=== PATIENT | female | born 1995 | race Caucasian/White ===

== ENCOUNTER 2016-07-20 10:25 | Outpatient (CLI) | payer MEDICAID | END 2016-07-20 13:40 | disposition home or self-care (01) | DX: O36.8130 Decreased fetal movements, third trimester, not applicable or unspecified (principal); Z3A.39 39 weeks gestation of pregnancy ==

== ENCOUNTER 2016-08-03 22:10 | Emergency (ER) | payer MEDICAID ==
[2016-08-03] MEDS ORDERED: AMOX/CLAV 875 MG/125 MG TABLET PO STA (23:47)
[2016-08-03] MEDS ORDERED: AMOX/CLAV 875 MG/125 MG TABLET PO ONE (23:51)
== END 2016-08-04 00:15 | disposition home or self-care (01) ==
DX: O86.0 Infection of obstetric surgical wound (principal)
CPT/HCPCS: 81001; 81025; 87077; 87086; 87181; 99283; A9270

== ENCOUNTER 2017-02-04 12:50 | Emergency (ER) | payer MEDICAID ==
--- NOTE | 2017-02-04 13:22 | ED Physician Documentation ---
PD HPI HEENT - Stated complaint Stated Complaint: FACIAL SWELLING - Chief complaint Chief Complaint: Heent - History obtained from History obtained from: Patient - History of Present Illness Timing - onset: Other (Increasing facial swelling on the right for the last few days with some tenderness around the infraorbital area and the right nares. She has had an exposed nerve on the tooth for the last 2 weeks but does not bothering her. No history of MRSA. No fevers. She is breast-feeding.) Review of Systems Constitutional: denies: Fever, Chills Eyes: denies: Loss of vision, Decreased vision, Photophobia Ears: denies: Loss of hearing, Ear pain Nose: denies: Rhinorrhea / runny nose, Congestion PD PAST MEDICAL HISTORY - Present Medications Home Medications: Ambulatory Orders Medication Instructions Recorded Confirmed Levetiracetam [Keppra] 1,500 mg PO BID 08/03/16 02/04/17 Calcium Carbonate/Vitamin D3 1 each PO DAILY 02/04/17 02/04/17 [Calcium 500-Vit D3 200 Tablet] Cephalexin [Keflex] 500 mg PO QID #40 capsule 02/04/17 - Allergies Allergies/Adverse Reactions: Allergies Allergy/AdvReac Type Severity Reaction Status Date / Time muscle relaxers AdvReac Rash Uncoded 02/04/17 12:55 - Social History Does the pt smoke?: No Smoking Status: Never smoker PD ED PE NORMAL - Vitals Vital signs reviewed: Yes - General General: Alert and oriented X 3, No acute distress - HEENT HEENT: Other (Pupils are equally round and reactive to light, extraocular movements are intact without pain. There is swelling from the infraorbital area down to the lip and out to the zygoma area, inside the right nares there are several crusted areas and at the anterior part of the right nares there is some tenderness but no obvious abscess to drain at this point. Teeth actually look pretty good.) - Neck Neck: Supple, no meningeal sign, No bony TTP - Neuro Neuro: Alert and oriented X 3, Normal speech - Psych Psych: Normal mood, Normal affect Results - Vitals Vitals: Vital Signs - 24 hr 02/04/17 12:53 Temperature 36.2 C L Heart Rate 94 Respiratory 18 Rate Blood Pressure 121/75 O2 Saturation 97 Oxygen O2 Source Room air - Labs Labs: Microbiology 02/04/17 13:21 MRSA (PCR) - Final Nasal PD MEDICAL DECISION MAKING - ED course ED course: 21-year-old woman with facial cellulitis from an intranasal source, no obvious abscess at this time. She is nontoxic without fevers and there is no evidence of orbital cellulitis. A MRSA PCR was sent. Since this was negative and she is breast-feeding she is treated with Keflex. Departure - Departure Disposition: 01 Home, Self Care Clinical Impression: Facial cellulitis Condition: Good Record reviewed to determine appropriate education?: Yes Instructions: ED Cellulitis Facial Prescriptions: Cephalexin [Keflex] 500 mg PO QID #40 capsule Comments: As discussed, return immediately if you worsen, develop significant pain, fever , or a specific pimple inside her nose that looks like it needs to be drained.
[2017-02-04] MEDS ORDERED: CEPHALEXIN 250 MG CAPSULE PO STA (15:56)
[2017-02-04] MEDS ORDERED: CEPHALEXIN 250 MG CAPSULE PO ONE (16:09)
[2017-02-04 16:11] VITALS: BP 113/72
== END 2017-02-04 16:15 | disposition home or self-care (01) ==
LOC: ED 12:50
DX: L03.211 Cellulitis of face (principal)
CPT/HCPCS: 87640; 99283; A9270

== ENCOUNTER 2017-02-21 03:50 | Inpatient (IN) | payer MEDICAID, OTHER ==
--- NOTE | 2017-02-21 04:14 | ED Physician Documentation ---
PD HPI ABD PAIN - Stated complaint Stated Complaint: NAUSEA,VOMITING - Chief complaint Chief Complaint: Abd Pain - History obtained from History obtained from: Patient - History of Present Illness Timing - onset: How many days ago (1-2) Timing - duration: Days Timing - details: Gradual onset Pain level max: 8 Pain level now: 6 Quality: Pain Location: RUQ Radiation: Other (no radiation) Improved by: Other (no ameliorating factors) Worsened by: Palpation Associated symptoms: Nausea, Vomiting. No: Fever, Diarrhea, Constipation Similar symptoms before: Has not had sx before Recently seen: Emergency Dept (T+R yesterday for N/V, had abnormal LFTs but no significant pain at that time. After d/c home, she rapidly developed RUQ pain which has progressed in intensity and is constant.) Review of Systems Constitutional: reports: Reviewed and negative Eyes: reports: Reviewed and negative Ears: reports: Reviewed and negative Nose: reports: Reviewed and negative Throat: reports: Reviewed and negative Cardiac: reports: Reviewed and negative Respiratory: reports: Reviewed and negative GI: reports: Abdominal Pain, Nausea, Vomiting. denies: Constipation, Diarrhea : denies: Dysuria, Frequency, Vaginal bleeding, Now EGA (urine HCG was negative on yesterday's ED workup) Skin: reports: Reviewed and negative Musculoskeletal: reports: Reviewed and negative Neurologic: reports: Reviewed and negative PD PAST MEDICAL HISTORY - Past Medical History Cardiovascular: None Respiratory: None Endocrine/Autoimmune: None - Present Medications Home Medications: Ambulatory Orders Medication Instructions Recorded Confirmed Levetiracetam [Keppra] 1,500 mg PO BID 08/03/16 02/20/17 Calcium Carbonate/Vitamin D3 1 each PO DAILY 02/04/17 02/20/17 [Calcium 500-Vit D3 200 Tablet] Promethazine [Phenergan] 12.5 mg PO Q6H PRN #10 tablet 02/20/17 - Allergies Allergies/Adverse Reactions: Allergies Allergy/AdvReac Type Severity Reaction Status Date / Time muscle relaxers AdvReac Rash Uncoded 02/21/17 04:00 - Social History Does the pt smoke?: No Smoking Status: Never smoker PD ED PE NORMAL - Vitals Vital signs reviewed: Yes - General General: Alert and oriented X 3, Well developed/nourished, Other (obvious painful distress) - HEENT HEENT: Moist mucous membranes - Neck Neck: Supple, no meningeal sign - Cardiac Cardiac: RRR, No murmur - Respiratory Respiratory: No respiratory distress, Clear bilaterally - Abdomen Abdomen: Soft, Non distended, Other (RUQ tenderness to palpation without rebound or guarding) - Back Back: No CVA TTP - Derm Derm: Normal color, Warm and dry - Extremities Extremities: No edema - Neuro Neuro: Alert and oriented X 3 Results - Vitals Vitals: Vital Signs - 24 hr 02/21/17 02/21/17 02/21/17 03:57 03:58 06:46 Temperature 36.1 C L 36.4 C L 36.4 C L Heart Rate 77 93 75 Respiratory 18 18 16 Rate Blood Pressure 139/87 H 119/87 H 115/60 O2 Saturation 100 97 98 Oxygen O2 Source Room air - Labs Labs: Laboratory Tests 02/21/17 02/21/17 02/21/17 04:20 04:20 04:20 WBC 9.8 RBC 4.77 Hgb 13.9 Hct 39.8 MCV 83.4 MCH 29.2 MCHC 35.1 RDW 12.0 Plt Count 240 MPV 8.3 Neut # 6.6 Lymph # 2.0 [place] # 0.8 Eos # 0.3 Baso # 0.0 Absolute Nucleated RBC 0.00 Nucleated RBC % 0.0 PT 12.2 INR 1.1 Sodium 138 Potassium 3.4 L Chloride 107 Carbon Dioxide 23 Anion Gap 8.0 BUN 6 Creatinine 0.5 Estimated GFR (MDRD) 154 Glucose 90 Calcium 8.8 Total Bilirubin 5.3 H AST 289 H ALT 672 H Alkaline Phosphatase 143 H Total Protein 7.8 Albumin 4.5 Globulin 3.3 Albumin/Globulin Ratio 1.4 Amylase 20 L Lipase 19 L PD MEDICAL DECISION MAKING - ED course Complexity details: reviewed old records, reviewed results, re-evaluated patient , considered differential, d/w patient ED course: LFTs have improved, but mild/minimal improvement, since yesterday's ED visit ( bilirubin, AST, ALT, and alk. phos.) She had pain control with IV dilaudid, although she noted pain was gradually returning. I discussed her case with Dr. Bailey (GI at [facility]); he recommends MRCP and INR. If INR>2, transfer would be indicated ("to [place]"). If MRCP is (+), transfer to [facility]. If MRCP is (-), can monitor and treat at [facility]. D/W Dr. Cho, accepts patient for [facility], will order MRCP. Patient denies alcohol use. Has not traveled outside of country (ever, let alone recently). She took one dose of tylenol last night, but this was the first dose of acetaminophen she recalls haven taken lately. Departure - Departure Disposition: ED Place in Observation Clinical Impression: Elevated liver enzymes Abdominal pain Qualifiers: Abdominal location: right upper quadrant Qualified Code(s): R10.11 - Right upper quadrant pain Condition: Stable
[2017-02-21] MEDS ORDERED: SODIUM CHLORIDE 0.9% 1,000 ML IV STA (04:48)
[2017-02-21] MEDS ORDERED: HYDROmorphone 0.5 MG/0.5 ML SYRINGE IVP STA (04:48)
[2017-02-21] MEDS ORDERED: ONDANSETRON 4 MG/2 ML VIAL IVP STA ×2 (04:49→07:59)
[2017-02-21 04:55] LABS: BASOPHILS % (AUTO) 0.5 %; EOSINOPHILS # (AUTO) 0.3 10^3/uL (0.0-0.7); HCT - HEMATOCRIT 39.8 % (37.0-47.0); HGB - HEMOGLOBIN 13.9 g/dL (12.0-16.0); LYMPHOCYTES % (AUTO) 20.8 %; MEAN CORPUSCULAR HEMOGLOBIN 29.2 pg (27.0-31.0); MEAN CORPUSCULAR HGB CONC 35.1 g/dL (32.0-36.0); MEAN CORPUSCULAR VOLUME 83.4 fL (81.0-99.0); MEAN PLATELET VOLUME 8.3 fL (7.9-10.8); MONOCYTES # (AUTO) 0.8 10^3/uL (0.0-1.0); MONOCYTES % (AUTO) 8.3 %; NEUTROPHILS # (AUTO) 6.6 10^3/uL (1.5-6.6); NEUTROPHILS % (AUTO) 67.4 %; RED BLOOD COUNT 4.77 10^6/uL (4.20-5.40); UNCORRECTED WHITE BLOOD COUNT 9.8 x10^3/uL; WHITE BLOOD COUNT 9.8 x10^3/uL (4.8-10.8)
[2017-02-21] MEDS ORDERED: HYDROmorphone 1 MG/ML SYRINGE ONE (05:03)
[2017-02-21] MEDS ORDERED: ONDANSETRON 4 MG/2 ML VIAL ONE ×2 (05:04→08:08)
[2017-02-21 05:09] LABS: ALBUMIN/GLOBULIN RATIO 1.4 (1.0-2.2); BILIRUBIN,TOTAL 5.3 mg/dL (0.2-1.0); CALCIUM 8.8 mg/dL (8.5-10.3); CREATININE 0.5 mg/dL (0.4-1.0); POTASSIUM 3.4 mmol/L (3.5-5.0); TOTAL PROTEIN 7.8 g/dL (6.7-8.2)
[2017-02-21 06:40] LABS: INR 1.1 (0.8-1.2); PT - PROTHROMBIN TIME 12.2 secs (9.9-12.6)
[2017-02-21] MEDS ORDERED: ACETAMINOPHEN 325 MG TABLET PO PRN (08:16)
[2017-02-21] MEDS ORDERED: HYDROmorphone 0.5 MG/0.5 ML SYRINGE IVP PRN (08:16)
[2017-02-21] MEDS ORDERED: PROMETHAZINE 25 MG/1 ML VIAL IM PRN (08:16)
[2017-02-21] MEDS: levETIRAcetam 250 MG TABLET PO SCH ×2 (09:42→21:58)
[2017-02-21] MEDS: SODIUM CHLORIDE 0.9% 1,000 ML IV SCH ×4 (09:54→23:44)
[2017-02-21] MEDS: ENOXAPARIN 40 MG/0.4 ML SYRINGE SUBQ SCH (10:20)
[2017-02-21] MEDS: POLYETHYLENE GLYCOL 3350 17 GM PACKET PO SCH (10:56)
[2017-02-21] MEDS: SODIUM CHLORIDE FLUSH 0.9% 10 ML SYRINGE IVP SCH ×2 (13:43→21:31)
[2017-02-21] MEDS: SODIUM CHLORIDE FLUSH 0.9% 10 ML SYRINGE IVP PRN (13:54)
[2017-02-21] MEDS: ONDANSETRON 4 MG/2 ML VIAL IVP PRN ×2 (13:54→23:16)
[2017-02-21 14:16] LABS: INR 1.1 (0.8-1.2); PT - PROTHROMBIN TIME 12.3 secs (9.9-12.6)
[2017-02-21 14:24] LABS: ALBUMIN/GLOBULIN RATIO 1.5 (1.0-2.2); BILIRUBIN,TOTAL 4.3 mg/dL (0.2-1.0); CALCIUM 8.4 mg/dL (8.5-10.3); CREATININE 0.4 mg/dL (0.4-1.0); POTASSIUM 3.5 mmol/L (3.5-5.0); TOTAL PROTEIN 6.1 g/dL (6.7-8.2)
[2017-02-21 14:35] LABS: BILIRUBIN,DIRECT 2.8 mg/dL (0.1-0.5); BILIRUBIN,INDIRECT 1.5 mg/dL; BILIRUBIN,TOTAL 4.3 mg/dL (0.2-1.0)
--- NOTE | 2017-02-21 15:48 | HISTORY & PHYSICAL EXAMINATION ---
Chief Complaint - Chief Complaint Chief Complaint: Abdominal pain History of Present Illness - Admitted From Admitted From:: Emergency department - History Obtained From Records Reviewed: Yes History obtained from: Patient Exam Limitations: None - History of Present Illness HPI Comment/Other: Patient is a 22-year-old female with a past medical history significant for scoliosis and epilepsy who presented to the emergency department with a chief complaint of abdominal pain. The patient states that her abdominal pain first started about 10 months ago while she was with her son. She states that at that time she began to notice a bandlike pain in the upper abdomen. She states that most of the pain was in the right upper quadrant but it moved around the entire upper part of the abdomen. She states that the pain was a cramping or nerve like pain that would last for anywhere from 12-15 hours and then resolved. She states the pain would be a 7-9 out of 10. She states the pain occurred about once a month for 6 months while she was . She states that after delivering she noticed that the pain would occur more frequently. She states that it occurred 2-3 times a month over the last 4 months. She states that she never saw a physician regarding the pain and has never been worked up. The patient states that 3 days ago the pain started up again but this time it was extreme and associated with nausea. She states that over 2 days her nausea became so severe she could not even drink water. She states that she had an episode of vomiting and finally decided to go to the emergency department. She also states that she noticed that her urine was really dark despite drinking lots of water. She initially came to the emergency room on 02/20/2017 at that time she was found to have abnormal LFTs and bilirubin. She had a bilirubin of 5.6, AST of 417, ALT of 776 and an alk phos of 146. She underwent a workup with an abdominal ultrasound which showed a gallbladder with no stones or wall thickening. She also had a common bile duct that was 0.5 cm at the aurora hepatis. And there was some possible mild intrahepatic bile duct dilation. The patients symptoms resolved completely with some antiemetics and IV fluids and she felt well enough that she was able to be discharged home from the emergency department. The patient states that after returning home she began having worsening abdominal pain mostly in the right upper quadrant region and had to return back to the emergency room early this morning. The patient denies any fevers or chills. She also denies any recent travel. She does admit to taking Tylenol yesterday but only a small dose. She denies any illicit drug use and any alcohol use. The patient denies any headaches, blurred vision, runny nose, sore throat, nasal congestion, difficulty swallowing , neck pain, chest pain, shortness of air, orthopnea, PND, increased lower extremity swelling, diarrhea, constipation, urinary urgency, urinary frequency, dysuria, joint pain, muscle aches, joint swelling, rash, back pain, neck stiffness, recent unintentional weight loss or any focal neurologic deficits. On presentation to the emergency department today the patient was afebrile and had normal vital signs. The patient was in a significant amount of pain and did require IV pain medication. She also was quite nauseated and did receive several doses of antiemetic. The patient's lab work did reveal that she still had an elevated bilirubin, AST, ALT and alk phos although these were slightly lower than yesterday. The patient's INR was normal. The patient's CBC was also normal. The emergency room physician spoke with night clerk auditor at [facility] who was on-call and the night clerk auditor recommended that the patient undergo an MRCP for further evaluation. If the MRCP was positive then the patient would need to be transferred to [facility] for an ERCP. If the MRCP was negative then this is most likely a viral hepatitis and supportive care was recommended. The patient was placed in observation and MRCP was ordered. History - Past Medical History Cardiovascular: reports: None Respiratory: reports: None Neuro: reports: Seizure disorder Endocrine/Autoimmune: reports: None Musculoskeletal: reports: Scoliosis - Past Surgical History Ortho: reports: Other (Repair of scoliosis) - Family & Social History Family History: Mother: Alive and Well (Mother has fatty liver, sister gallstones), Father: Alive and Well, Diabetes, Type 2 (grandfather), Sister: Alive and Well, Other family: Cancer (Grandfather had cancer) Living arrangement: At home Living Situation: With spouse/s.o., With family Social History Notes: Patient is originally from [place]. She lives with her and son in [place]. The patient's is originally from [place] and is currently in the [employer]. She lives with her and son. Patient has just one child. 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 She does not smoke, does not drink alcohol and denies any illicit drug use. - POLST Patient has POLST: No POLST Status: Full Code Meds/Allgy - Home Medications Home Medications: Ambulatory Orders Medication Instructions Recorded Confirmed Levetiracetam [Keppra] 1,500 mg PO BID 08/03/16 02/21/17 Calcium Carbonate/Vitamin D3 1 each PO DAILY 02/04/17 02/21/17 [Calcium 500-Vit D3 200 Tablet] Promethazine [Phenergan] 12.5 mg PO Q6H PRN #10 tablet 02/20/17 - Allergies Allergies/Adverse Reactions: Allergies Allergy/AdvReac Type Severity Reaction Status Date / Time muscle relaxers AdvReac Rash Uncoded 02/21/17 04:00 Review of Systems - Other Findings Other Findings: A comprehensive review of systems was performed the pertinent positives and negatives are stated above in the HPI and the remainder of the review of systems is negative. Exam - Vital Signs Reviewed Vital Signs: Yes Vital Signs: Vital Signs x48h Temp Pulse Pulse Resp BP BP Pulse Ox 02/21/17 10:15 36.8 C 66 16 114/53 L 99 02/21/17 08:21 36.4 C L 75 15 121/71 98 - Physical Exam General Appearance: positive: No acute distress, Alert, Other (jaundiced, appears weak) Eyes Bilateral: positive: Normal inspection, PERRL, EOMI, No lid inflammation, Conjunctivae nml, Other (scleral icterus) ENT: positive: ENT inspection nml, Pharynx nml, Dry mucous membranes. negative : Purulent nasal drainage, Pharyngeal erythema, Oral lesions Neck: positive: Nml inspection, Thyroid nml, No JVD, Trachea midline. negative : Thyromegaly, Lymphadenopathy (R), Lymphadenopathy (L), Stiff neck, Carotid bruit, Tracheal deviation Respiratory: positive: Chest non-tender, No respiratory distress, Breath sounds nml. negative: Wheezes, Rales, Rhonchi Cardiovascular: positive: Regular rate & rhythm, No murmur, No gallop Peripheral Pulses: positive: 2+ Abdomen: positive: No organomegaly, Nml bowel sounds, Tenderness (Mostly in the RUQ but all over including left and right lower quadrants), Other (No peritoneal signs, negative murphys sign). negative: Guarding, Rebound, Hepatomegaly Back: positive: Nml inspection. negative: CVA tenderness (R), CVA tenderness (L ) Skin: positive: No rash, Warm, Other (Jaundiced). negative: Cyanosis, Pallor Extremities: positive: Non-tender, Full ROM, Nml appearance, No pedal edema Neurologic/Psychiatric: positive: Oriented x3, CN's nml (2-12), Motor nml, Sensation nml, Mood/affect nml Conclusion/Plan - Problem List (1) Abdominal pain Conclusion/Plan: Patient presents with severe abdominal pain, nausea and vomiting. Patient has elevated LFTs and bilirubin on presentation. The patient's abdominal ultrasound was negative for gallstones or cholecystitis. Patient is afebrile and has no leukocytosis. Patient has been having off-and-on symptoms of abdominal pain for the past 10 months. Symptoms became significantly worse and persistent the last 3-4 days. Gastroenterology at [facility] was contacted and recommended MRCP for further evaluation. Given the significant elevation in the patient's bilirubin it is suspected that the patient may have a common bile duct stone or may have passed a common bile duct stone as LFTs and bilirubin are slowly improving. The patient may also have a portal vein thrombosis although this is unlikely given the chronicity of the patient's symptoms. Patient could also have a viral hepatitis. Plan: Order MRCP Supportive care with IV fluids, antiemetics and IV pain medication. Monitor LFTs, bilirubin and INR every 8 hours Transfer to higher level of care if need for ERCP Qualifiers: Abdominal location: right upper quadrant Qualified Code(s): R10.11 - Right upper quadrant pain (2) Elevated liver enzymes Conclusion/Plan: Patient presented with elevated liver enzymes with ALT greater than AST and elevated bilirubin. Patient has abdominal pain, nausea and vomiting. Ultrasound of the abdomen did not show any gallstones or cholecystitis. Patient 's liver enzymes have only mildly improved since yesterday. Patient's abdominal pain has worsened. Because of the patient's elevated LFTs is uncertain at this time. Patient needs further workup as differential is still wide including choledocholithiasis , hepatic vein thrombosis, viral hepatitis, cholangitis, primary biliary cirrhosis, primary sclerosing cholangitis. Plan: Hepatitis surveyor rod helper LFTs, bili and inr MRCP Supportive care (3) Epilepsy Conclusion/Plan: Patient has history of epilepsy and is on Keppra at home. It is very unlikely that Keppra is causing her elevated LFTs and bilirubin. Continue home dose of Keppra. Stable (4) Prophylactic use of low molecular weight heparin for venous thromboembolism Conclusion/Plan: Placed on Lovenox for DVT prophylaxis while hospitalized. - Lab Results Lab results reviewed: Yes Fish Bones: 02/21/17 04:20 02/21/17 13:58 Other Lab Results: Laboratory Results WBC 9.8 x10^3/uL (4.8-10.8) 02/21/17 04:20 RBC 4.77 10^6/uL (4.20-5.40) 02/21/17 04:20 Hgb 13.9 g/dL (12.0-16.0) 02/21/17 04:20 Hct 39.8 % (37.0-47.0) 02/21/17 04:20 MCV 83.4 fL (81.0-99.0) 02/21/17 04:20 MCH 29.2 pg (27.0-31.0) 02/21/17 04:20 MCHC 35.1 g/dL (32.0-36.0) 02/21/17 04:20 RDW 12.0 % (12.0-15.0) 02/21/17 04:20 Plt Count 240 10^3/uL (130-450) 02/21/17 04:20 MPV 8.3 fL (7.9-10.8) 02/21/17 04:20 Neut # 6.6 10^3/uL (1.5-6.6) 02/21/17 04:20 Lymph # 2.0 10^3/uL (1.5-3.5) 02/21/17 04:20 [place] # 0.8 10^3/uL (0.0-1.0) 02/21/17 04:20 Eos # 0.3 10^3/uL (0.0-0.7) 02/21/17 04:20 Baso # 0.0 10^3/uL (0.0-0.1) 02/21/17 04:20 Absolute Nucleated RBC 0.00 x10^3/uL 02/21/17 04:20 Nucleated RBC % 0.0 /100WBC 02/21/17 04:20 PT 12.3 secs (9.9-12.6) 02/21/17 13:58 INR 1.1 (0.8-1.2) 02/21/17 13:58 Sodium 140 mmol/L (135-145) 02/21/17 13:58 Potassium 3.5 mmol/L (3.5-5.0) 02/21/17 13:58 Chloride 107 mmol/L (101-111) 02/21/17 13:58 Carbon Dioxide 24 mmol/L (21-32) 02/21/17 13:58 Anion Gap 9.0 (6-13) 02/21/17 13:58 BUN 5 mg/dL (6-20) L 02/21/17 13:58 Creatinine 0.4 mg/dL (0.4-1.0) 02/21/17 13:58 Estimated GFR (MDRD) 200 (>89) 02/21/17 13:58 Glucose 88 mg/dL (70-100) 02/21/17 13:58 Calcium 8.4 mg/dL (8.5-10.3) L 02/21/17 13:58 Total Bilirubin 4.3 mg/dL (0.2-1.0) H 02/21/17 13:58 Direct Bilirubin 2.8 mg/dL (0.1-0.5) H 02/21/17 13:58 Indirect Bilirubin 1.5 mg/dL 02/21/17 13:58 AST 187 IU/L (10-42) H 02/21/17 13:58 ALT 489 IU/L (10-60) H 02/21/17 13:58 Alkaline Phosphatase 121 IU/L (42-121) 02/21/17 13:58 Total Protein 6.1 g/dL (6.7-8.2) L 02/21/17 13:58 Albumin 3.7 g/dL (3.2-5.5) 02/21/17 13:58 Globulin 2.4 g/dL (2.1-4.2) 02/21/17 13:58 Albumin/Globulin Ratio 1.5 (1.0-2.2) 02/21/17 13:58 Amylase 20 U/L (28-100) L 02/21/17 04:20 Lipase 19 U/L (22-51) L 02/21/17 04:20 - Diagnostic Imaging Results Diagnostic Imaging Results: positive: Final report reviewed Diagnostic Imaging Results Comments: Ultrasound abdomen Impression 1. The gallbladder demonstrates no stones or wall thickening. 2. The common bile duct measures 0.5 cm at the aurora hepatis. 3. Possible mild intrahepatic bile duct dilatation. Issues/Core Measures - Anticipated LOS Anticipated Stay Length: Less than 2 midnights - DVT/VTE - Prophylaxis VTE/DVT Prophylaxis med ordered at admit?: Yes
--- NOTE | 2017-02-21 18:19 | MRI Report ---
EXAM: MR ABDOMEN WITHOUT CONTRAST (MR CHOLANGIOPANCREATOGRAPHY) EXAM DATE: 02/21/2017 05:23 PM. CLINICAL HISTORY: Elevated liver enzymes and bilirubin. Abdominal pain with nausea and vomiting. COMPARISON: None. TECHNIQUE: Multiplanar breath-hold T1 and T2 sequences obtained through the abdomen on an MR scanner. Dedicated 2D and 3D MRCP sequences obtained through the biliary and pancreatic ducts. No intravenous contrast given. FINDINGS: Lung Bases: The lung bases are clear. Liver: The liver is normal in contour without focal intrahepatic lesion. CBD: The extrahepatic ducts appear normal. The CBD is 4 mm in diameter. Gallbladder: Mildly contracted with gallbladder wall thickening with some layering T1 and T2 hypointe nse material within the gallbladder (401, 10; 501, 10). Trace pericholecystic fluid. Pancreas: The pancreas appears normal with no mass. The pancreatic duct measures 1 mm in diameter and appears normal with no stone or stricture. Spleen: The spleen appears normal. Kidneys and Adrenals: The kidneys appear normal with no mass or hydronephrosis. There are no cysts in the kidneys. The adrenals appear normal. Bowel: The small bowel and colon appear normal with no inflammation or obstruction. Retroperitoneum: The retroperitoneal structures appear normal with no mass or lymphadenopathy. IMPRESSION: 1. Contracted gallbladder with gallbladder wall thickening and some filling defects near the fundus o f the gallbladder. This could represent some tumefactive sludge or noncalcified stones. Trace pericho lecystic fluid. Different diagnosis for the gallbladder wall thickening when include cholecystitis, h ypoproteinemia or underlying liver disease. [facility] Referring Provider Line: [phone] SITE ID: [id number]
[2017-02-21 22:23] LABS: INR 1.1 (0.8-1.2); PT - PROTHROMBIN TIME 12.6 secs (9.9-12.6)
[2017-02-21 22:37] LABS: ALBUMIN/GLOBULIN RATIO 1.3 (1.0-2.2); BILIRUBIN,TOTAL 3.9 mg/dL (0.2-1.0); BUN - BLOOD UREA NITROGEN < 5 mg/dL (6-20); CALCIUM 8.2 mg/dL (8.5-10.3); CARBON DIOXIDE - CO2 23 mmol/L (21-32); CHLORIDE 107 mmol/L (101-111); CREATININE 0.5 mg/dL (0.4-1.0); GFR - MDRD 154 (>89); GLUCOSE 93 mg/dL (70-100); POTASSIUM 3.1 mmol/L (3.5-5.0); SODIUM 140 mmol/L (135-145)
[2017-02-22] MEDS: ONDANSETRON 4 MG/2 ML VIAL IVP PRN ×3 (05:10→21:23)
[2017-02-22] MEDS: SODIUM CHLORIDE FLUSH 0.9% 10 ML SYRINGE IVP SCH ×3 (05:10→19:40)
[2017-02-22] MEDS: SODIUM CHLORIDE 0.9% 1,000 ML IV SCH ×2 (05:10→19:36)
[2017-02-22 06:17] LABS: BASOPHILS % (AUTO) 0.7 %; EOSINOPHILS # (AUTO) 0.3 10^3/uL (0.0-0.7); EOSINOPHILS % (AUTO) 4.8 %; HCT - HEMATOCRIT 35.3 % (37.0-47.0); HGB - HEMOGLOBIN 12.3 g/dL (12.0-16.0); LYMPHOCYTES # (AUTO) 1.8 10^3/uL (1.5-3.5); LYMPHOCYTES % (AUTO) 32.8 %; MEAN CORPUSCULAR HGB CONC 34.9 g/dL (32.0-36.0); MEAN CORPUSCULAR VOLUME 85.7 fL (81.0-99.0); MEAN PLATELET VOLUME 8.5 fL (7.9-10.8); MONOCYTES # (AUTO) 0.4 10^3/uL (0.0-1.0); MONOCYTES % (AUTO) 7.8 %; NEUTROPHILS % (AUTO) 53.9 %; RED BLOOD COUNT 4.11 10^6/uL (4.20-5.40); RED CELL DISTRIBUTION WIDTH 12.4 % (12.0-15.0); UNCORRECTED WHITE BLOOD COUNT 5.6 x10^3/uL; WHITE BLOOD COUNT 5.6 x10^3/uL (4.8-10.8)
[2017-02-22 06:22] LABS: INR 1.1 (0.8-1.2); PT - PROTHROMBIN TIME 12.2 secs (9.9-12.6)
[2017-02-22 06:30] LABS: ALBUMIN/GLOBULIN RATIO 1.5 (1.0-2.2); BILIRUBIN,TOTAL 3.5 mg/dL (0.2-1.0); BUN - BLOOD UREA NITROGEN < 5 mg/dL (6-20); CALCIUM 8.4 mg/dL (8.5-10.3); CARBON DIOXIDE - CO2 22 mmol/L (21-32); CHLORIDE 107 mmol/L (101-111); CREATININE 0.4 mg/dL (0.4-1.0); GFR - MDRD 200 (>89); GLUCOSE 92 mg/dL (70-100); POTASSIUM 3.3 mmol/L (3.5-5.0); SODIUM 138 mmol/L (135-145); TOTAL PROTEIN 5.9 g/dL (6.7-8.2)
[2017-02-22] MEDS: PANTOPRAZOLE 40 MG TABLET PO SCH (06:44)
[2017-02-22] MEDS: ENOXAPARIN 40 MG/0.4 ML SYRINGE SUBQ SCH (09:04)
[2017-02-22] MEDS: PIPERACILLIN/TAZOBACTAM 3.375 GM in SODIUM CHLORIDE 0.9% MINIBAG 100 ML IV SCH ×3 (09:06→21:21)
[2017-02-22] MEDS: levETIRAcetam 250 MG TABLET PO SCH ×2 (09:58→21:21)
--- NOTE | 2017-02-22 10:18 | PROVIDER PROGRESS NOTE ---
Assessment/Plan - Problem List (1) Cholecystitis Assessment/Plan: Patient presents with severe abdominal pain, nausea and vomiting. Patient has elevated LFTs and bilirubin on presentation. The patient's abdominal ultrasound was negative for gallstones or cholecystitis. Patient is afebrile and has no leukocytosis. Patient has been having off-and-on symptoms of abdominal pain for the past 10 months. Symptoms became significantly worse and persistent the last 3-4 days. Gastroenterology at [facility] was contacted and recommended MRCP for further evaluation. MRCP shows contracted gallbladder with gallbladder wall thickening and some filling defect near the fundus of the gallbladder. This could represent some tumefactive sludge or noncalcified stones. There is trace pericholecystic fluid. The differential diagnosis for gallbladder wall thickening includes cholecystitis, hypoproteinemia or underlying liver disease. These findings were discussed with gastroenterology at [facility] and they recommended a cholecystectomy and treatment for cholecystitis. Surgery was consulted and Dr. Dyer asked for patient to be made n.p.o. after midnight and will operate in the morning with laparoscopic cholecystectomy. Plan: N.p.o. after midnight Laparoscopic cholecystectomy in the morning Surgery consulted IV Zosyn for treatment of cholecystitis IV fluids Antiemetics Pain control Qualifiers: Abdominal location: right upper quadrant Qualified Code(s): R10.11 - Right upper quadrant pain (2) Elevated liver enzymes Conclusion/Plan: Patient presented with elevated liver enzymes with ALT greater than AST and elevated bilirubin. Patient has abdominal pain, nausea and vomiting. Ultrasound of the abdomen did not show any gallstones or cholecystitis. Patient 's liver enzymes have only mildly improved since yesterday. Patient's abdominal pain has worsened. Improving likely secondary to cholecystitis and possible transient CBD obstruction. MRCP does not show any CBD stones or CBD dilation. Plan: Continue to monitor LFTs Improving Surgery consult for cholecystectomy. (3) Epilepsy Conclusion/Plan: Patient has history of epilepsy and is on Keppra at home. It is very unlikely that Keppra is causing her elevated LFTs and bilirubin. Continue home dose of Keppra. Stable (4) Prophylactic use of low molecular weight heparin for venous thromboembolism Conclusion/Plan: Placed on Lovenox for DVT prophylaxis while hospitalized. - Current Meds Current Meds: Current Medications Generic Name Dose Route Start Last Admin Trade Name Freq PRN Reason Stop Dose Admin Enoxaparin Sodium 40 mg 02/21/17 09:00 02/22/17 09:04 Lovenox SUBQ 40 mg DAILY KAMERON Administration Sodium Chloride 1,000 mls @ 150 mls/hr 02/21/17 09:00 02/22/17 05:10 Normal Saline 0.9% IV 150 mls/hr .Q6H40M KAMERON Administration Piperacillin Sod/Tazobactam 100 mls @ 200 mls/hr 02/22/17 09:00 02/22/17 09: 06 Sod 3.375 gm/ Sodium Chloride IV 200 mls/hr Q6H KAMERON Administration Levetiracetam 1,500 mg 02/21/17 09:00 02/21/17 21:58 Keppra PO 1,500 mg BID KAMERON Administration Ondansetron HCl 4 mg 02/21/17 08:16 02/22/17 05:10 Zofran Inj IVP 4 mg Q6HR PRN Administration Nausea / Vomiting Pantoprazole Sodium 40 mg 02/22/17 07:00 02/22/17 06:44 Protonix PO 40 mg QDAC KAMERON Administration Polyethylene Glycol 17 gm 02/21/17 09:00 02/21/17 10:56 Miralax PO Not Given DAILY KAMERON Sodium Chloride 10 ml 02/21/17 08:16 02/21/17 13:54 Normal Saline Flush 0.9% IVP 10 ml PRN PRN Administration NEEDED PER PROVIDER ORDERS Sodium Chloride 10 ml 02/21/17 14:00 02/22/17 05:10 Normal Saline Flush 0.9% IVP Not Given Q8HR KAMERON - Lab Result Lab results reviewed: Yes Fish Bone Diagrams: 02/22/17 05:29 02/22/17 05:29 - Diagnostic Imaging Results Diagnostic Imaging Results: Final report reviewed Diagnostic Imaging Results Comments: MRCP: Impression: 1. Contracted gallbladder with gallbladder wall thickening and some filling defect near the fundus of the gallbladder. This could represent some tumefactive sludge or noncalcified stones. Trace pericholecystic fluid. Differential diagnosis for the gallbladder wall thickening when include cholecystitis, hypoproteinemia or underlying liver disease. - Additional Planning Condition/Complexity: Guarded My Orders: My Active Orders 02/22/17 General Surgery Consult [CONS] Routine 02/22/17 08:46 Admit [Admit \ Transfer \ Status] [RC] .ONCE 02/22/17 09:00 Piperacillin/Tazobactam [Zosyn] 3.375 gm Sodium Chloride 0.9% Minibag [Normal Saline 0.9% Minibag] 100 ml IV Q6H 02/22/17 12:00 Flu Vaccine Qs 5227-8665 [Fluarix Quad 4528-1725] 60 mcg IM .ONCE ONE 02/22/17 Breakfast DIET [Regular Diet] [DIET] 02/23/17 00:01 NPO except Meds at Midnight [DIET] Consult/Specialty: Surgery Plan Discussed with:: Patient Time Spent: 31-60 minutes Subjective - Subjective Patient Reports: Feeling Better, Resting Comfortably, Abdominal Pain (Pain is controlled but patient states it still comes on when pain medicaiton wears off.) , Nausea (Patient continues to have nausea but better controlled. She was able to eat her breakfast this morning.) Nursing Reports: No Complaints Objective Vital Signs: Vital Signs - 24 hr 02/21/17 02/21/17 02/21/17 15:59 20:33 23:41 Temperature 36.7 C 36.8 C 36.6 C Heart Rate [ 74 71 65 Brachial] Respiratory 18 17 18 Rate Blood Pressure 104/53 L 112/65 120/66 [Left Brachial artery] O2 Saturation 98 99 98 02/22/17 02/22/17 05:21 09:12 Temperature 36.6 C 36.8 C Heart Rate [ 75 72 Brachial] Respiratory 16 Rate Blood Pressure 106/75 122/68 [Left Brachial artery] O2 Saturation 98 98 Oxygen O2 Source Room air I&O (Last 24 Hrs): Intake and Output Totals x24h 02/20/17 02/21/17 02/22/17 23:59 23:59 22:59 Intake Total 2060.0 965 Output Total 650 Balance 1410.0 965 General: Alert, Oriented x3, Cooperative, No acute distress HEENT: Atraumatic, PERRLA, EOMI, Mucous membr. moist/pink Neck: Supple, No JVD, No thyromegaly, +2 carotid pulse wo bruit, No LAD Lymphatic: no adenopathy Neuro: Alert, Non Focal, CN 2-12 Grossly Intact, Oriented Times 3 Cardiovascular: Regular rate, Normal S1, Normal S2, No murmurs Respiratory: Chest non-tender, No respiratory distress, Breath sounds nml Abdomen: Soft, No hepatospenomegaly, Other (Tenderness mostly in the right upper quadrant but tender all over the abdomen) Extremities: No clubbing, No cyanosis, No edema, Normal pulses, No tenderness/ swelling Skin: No rashes, No breakdown - Results Results: Laboratory Results WBC 5.6 x10^3/uL (4.8-10.8) 02/22/17 05:29 RBC 4.11 10^6/uL (4.20-5.40) L 02/22/17 05:29 Hgb 12.3 g/dL (12.0-16.0) 02/22/17 05:29 Hct 35.3 % (37.0-47.0) L 02/22/17 05:29 MCV 85.7 fL (81.0-99.0) 02/22/17 05:29 MCH 30.0 pg (27.0-31.0) 02/22/17 05:29 MCHC 34.9 g/dL (32.0-36.0) 02/22/17 05:29 RDW 12.4 % (12.0-15.0) 02/22/17 05:29 Plt Count 187 10^3/uL (130-450) 02/22/17 05:29 MPV 8.5 fL (7.9-10.8) 02/22/17 05:29 Neut # 3.0 10^3/uL (1.5-6.6) 02/22/17 05:29 Lymph # 1.8 10^3/uL (1.5-3.5) 02/22/17 05:29 [place] # 0.4 10^3/uL (0.0-1.0) 02/22/17 05:29 Eos # 0.3 10^3/uL (0.0-0.7) 02/22/17 05:29 Baso # 0.0 10^3/uL (0.0-0.1) 02/22/17 05:29 Absolute Nucleated RBC 0.00 x10^3/uL 02/22/17 05:29 Nucleated RBC % 0.0 /100WBC 02/22/17 05:29 PT 12.2 secs (9.9-12.6) 02/22/17 05:29 INR 1.1 (0.8-1.2) 02/22/17 05:29 Sodium 138 mmol/L (135-145) 02/22/17 05:29 Potassium 3.3 mmol/L (3.5-5.0) L 02/22/17 05:29 Chloride 107 mmol/L (101-111) 02/22/17 05:29 Carbon Dioxide 22 mmol/L (21-32) 02/22/17 05:29 Anion Gap 9.0 (6-13) 02/22/17 05:29 BUN < 5 mg/dL (6-20) L 02/22/17 05:29 Creatinine 0.4 mg/dL (0.4-1.0) 02/22/17 05:29 Estimated GFR (MDRD) 200 (>89) 02/22/17 05:29 Glucose 92 mg/dL (70-100) 02/22/17 05:29 Calcium 8.4 mg/dL (8.5-10.3) L 02/22/17 05:29 Total Bilirubin 3.5 mg/dL (0.2-1.0) H 02/22/17 05:29 Direct Bilirubin 2.8 mg/dL (0.1-0.5) H 02/21/17 13:58 Indirect Bilirubin 1.5 mg/dL 02/21/17 13:58 AST 118 IU/L (10-42) H 02/22/17 05:29 ALT 379 IU/L (10-60) H 02/22/17 05:29 Alkaline Phosphatase 114 IU/L (42-121) 02/22/17 05:29 Total Protein 5.9 g/dL (6.7-8.2) L 02/22/17 05:29 Albumin 3.5 g/dL (3.2-5.5) 02/22/17 05:29 Globulin 2.4 g/dL (2.1-4.2) 02/22/17 05:29 Albumin/Globulin Ratio 1.5 (1.0-2.2) 02/22/17 05:29 Amylase 20 U/L (28-100) L 02/21/17 04:20 Lipase 19 U/L (22-51) L 02/21/17 04:20
[2017-02-22] MEDS: POLYETHYLENE GLYCOL 3350 17 GM PACKET PO SCH (10:27)
[2017-02-22] MEDS ORDERED: FLU VACCINE QS 2017-2018 60 MCG/0.5 ML SYRINGE IM ONE (12:00)
[2017-02-22] MEDS: SODIUM CHLORIDE FLUSH 0.9% 10 ML SYRINGE IVP PRN ×2 (13:23→21:22)
[2017-02-22] MEDS ORDERED: POTASSIUM CHLORIDE 20 MEQ TABLET PO SCH (17:01)
[2017-02-23] MEDS: SODIUM CHLORIDE 0.9% 1,000 ML IV SCH ×3 (02:35→15:31)
[2017-02-23] MEDS: PIPERACILLIN/TAZOBACTAM 3.375 GM in SODIUM CHLORIDE 0.9% MINIBAG 100 ML IV SCH ×3 (02:36→15:31)
[2017-02-23] MEDS: PANTOPRAZOLE 40 MG TABLET PO SCH (02:39)
[2017-02-23] MEDS: SODIUM CHLORIDE FLUSH 0.9% 10 ML SYRINGE IVP SCH ×3 (02:39→21:41)
[2017-02-23] MEDS: ONDANSETRON 4 MG/2 ML VIAL IVP PRN ×2 (03:54→19:26)
[2017-02-23 05:50] LABS: BASOPHILS % (AUTO) 0.5 %; EOSINOPHILS # (AUTO) 0.3 10^3/uL (0.0-0.7); EOSINOPHILS % (AUTO) 4.1 %; HCT - HEMATOCRIT 34.9 % (37.0-47.0); HGB - HEMOGLOBIN 12.2 g/dL (12.0-16.0); LYMPHOCYTES # (AUTO) 1.3 10^3/uL (1.5-3.5); LYMPHOCYTES % (AUTO) 17.5 %; MEAN CORPUSCULAR HEMOGLOBIN 29.7 pg (27.0-31.0); MEAN CORPUSCULAR HGB CONC 34.8 g/dL (32.0-36.0); MEAN CORPUSCULAR VOLUME 85.3 fL (81.0-99.0); MEAN PLATELET VOLUME 7.9 fL (7.9-10.8); MONOCYTES # (AUTO) 0.6 10^3/uL (0.0-1.0); MONOCYTES % (AUTO) 8.8 %; NEUTROPHILS % (AUTO) 69.1 %; NUCLEATED RED BLOOD CELLS AUTO 0.1 /100WBC; RED CELL DISTRIBUTION WIDTH 12.2 % (12.0-15.0); UNCORRECTED WHITE BLOOD COUNT 7.2 x10^3/uL; WHITE BLOOD COUNT 7.2 x10^3/uL (4.8-10.8)
[2017-02-23 05:53] LABS: PT - PROTHROMBIN TIME 11.7 secs (9.9-12.6)
[2017-02-23 06:13] LABS: ALBUMIN/GLOBULIN RATIO 1.3 (1.0-2.2); BILIRUBIN,TOTAL 1.8 mg/dL (0.2-1.0); BUN - BLOOD UREA NITROGEN < 5 mg/dL (6-20); CALCIUM 8.7 mg/dL (8.5-10.3); CARBON DIOXIDE - CO2 24 mmol/L (21-32); CHLORIDE 106 mmol/L (101-111); CREATININE 0.6 mg/dL (0.4-1.0); GFR - MDRD 125 (>89); GLUCOSE 92 mg/dL (70-100); MAGNESIUM 1.5 mg/dL (1.7-2.8); PHOSPHORUS 3.1 mg/dL (2.5-4.6); POTASSIUM 3.4 mmol/L (3.5-5.0); SODIUM 136 mmol/L (135-145)
[2017-02-23] MEDS: ENOXAPARIN 40 MG/0.4 ML SYRINGE SUBQ SCH (07:09)
[2017-02-23] MEDS ORDERED: POTASSIUM CHLORIDE 20 MEQ TABLET PO SCH (07:30)
[2017-02-23] MEDS ORDERED: MAGNESIUM SULFATE 2 GRAM 2 GM/50 ML BAG IV ONE (07:30)
[2017-02-23] MEDS: POLYETHYLENE GLYCOL 3350 17 GM PACKET PO SCH (08:26)
--- NOTE | 2017-02-23 09:20 | PROVIDER PROGRESS NOTE ---
Hospitalist Cross-cover Note - Cross-Cover Note Cross-Cover Note: Patient seen and examined this morning. Patient had a lot of nausea last night, abdominal pain is still bothering her but stable. Patient is NPO for surgery later this morning. Her potassium and magnesium are being replaced. Patients LFTs and Bilirubin are much better this morning. If surgery goes without any complications then patient might be able to be discharged this afternoon or evening.
[2017-02-23] MEDS: levETIRAcetam 250 MG TABLET PO SCH (09:48)
--- NOTE | 2017-02-23 10:08 | CONSULTATION NOTE ---
DATE OF CONSULTATION: 02/22/2017 00:00:00 REASON FOR CONSULTATION: Biliary colic, possible choledocholithiasis, possible acute cholecystitis. HISTORY OF PRESENT ILLNESS: This is a 22-year-old female who is 5 months who presented to the emergency department with a 3-day history of abdominal pain, nausea and vomiting. She states that during her she initially started developing abdominal pain and nausea, and since delivery she has had persistent symptoms approximately 1-2 times per month. She came to the emergency department yesterday because she was having progressive symptoms, which were not subsiding. Upon evaluation in the emergency department, her LFTs were noted to be markedly elevated. She subsequently underwent an ultrasound of the right upper quadrant, which demonstrated a normal-appearing gallbladder without CBD dilatation, without any evidence of CBD stones, and with mild intrahepatic duct dilatation. She was admitted to the medical service, placed on IV antibiotics and an MRCP performed the following day. Her MRCP has demonstrated a contractured gallbladder with gallbladder wall thickening and filling defects near the fundus of the gallbladder suggestive of gallstones. She has trace pericholecystic fluid. The common bile duct measures 4 mm, and there are no filling defects in the CBD. There is no noted or intra or extrahepatic biliary dilatation. The findings are consistent with acute cholecystitis. At this point, a surgical consultation was obtained. Upon my evaluation of the patient, she is resting in bed comfortably. She states that her symptoms are markedly improved since admission to the hospital. Currently, her bilirubin has almost normalized to 1.8. Upon admission, it was noted to be 5.3. Additionally, her LFTs are trending down. PAST MEDICAL HISTORY: Significant for epilepsy. PAST SURGICAL HISTORY: Spinal surgery for scoliosis. HOME MEDICATIONS: Keppra. ALLERGIES TO MEDICATIONS: MUSCLE RELAXANTS. PHYSICAL EXAMINATION VITAL SIGNS: Temperature is 36.6, blood pressure 126/67, heart rate is 66, respiratory rate is 17, O2 status 99% on room air. GENERAL: The patient is awake, alert, oriented x3, in no acute distress. She is overweight. CARDIOVASCULAR: Regular rate and rhythm. CHEST: Clear to auscultation bilaterally without rhonchi or wheezing. ABDOMEN: Soft and nondistended. There is mild tenderness to palpation in the right upper quadrant. No guarding and no rigidity. EXTREMITIES: Nonedematous. LABORATORY VALUES: Sodium 136, potassium 3.4, chloride 106, bicarbonate 24, BUN 5, creatinine 0.6, total bilirubin 1.8, AST 54, ALT 291, alkaline phosphatase 111. Amylase on admission 20 and lipase on admission 19. White blood cell count is 7.2, hemoglobin 12.2, hematocrit 34.9, platelets 167. ASSESSMENT: This is a 22-year-old female with acute cholecystitis and possible passage of a gallstone causing transient transaminitis. PLAN: The patient will be taken to the operating room for laparoscopic cholecystectomy and intraoperative cholangiogram. The procedure was explained to the patient in detail including the potential risks involved including, but not limited to bleeding, infection and damage to intra-abdominal organs. Specifically, including the common bile duct. Keep the patient n.p.o. on IV fluids and on IV antibiotics. The patient should be able to be discharged home after the procedure, depending on the intraoperative findings. I did explain to the patient that if a common bile duct stone is present, then she potentially could require an ERCP after operative intervention if I am unable to clear up the stone laparoscopically. JOB #: [id number] EXT JOB #:[id number]
[2017-02-23] MEDS ORDERED: BUPIVACAINE 0.25%-EPI 1:200000 PF 30 ML VIAL SUBQ ONE (14:00)
[2017-02-23] MEDS ORDERED: LACTATED RINGERS 1,000 ML IV ONE (15:32)
[2017-02-23] MEDS: HYDROmorphone 1 MG/ML SYRINGE ONE ×3 (15:40→16:00)
[2017-02-23] MEDS ORDERED: SODIUM CHLORIDE 0.9% 1,000 ML IV SCH (15:41)
--- NOTE | 2017-02-23 15:44 | OPERATIVE REPORT ---
Operative Report - General Admit Date: 02/22/17 Procedure Date: 02/23/17 Procedure Performed: Laparoscopic cholecystectomy with attempted IOC Post Op Diagnosis: acute cholecystitis - Procedure Note Primary Surgeon: Gomez Anesthesia Technique: General ET tube Pathology: gallbladder Complications: Unable to advance cholangiogram catheter in order to perform cholangiogram.Possible etiology is cystic duct or CBD stone, stricture or edema secondary to recent passage of stone - Other Other Information/Narrative: regular diet. repeat LFT's in am.
--- NOTE | 2017-02-23 16:54 | PROVIDER PROGRESS NOTE ---
Assessment/Plan - Problem List (1) Cholecystitis Assessment/Plan: Patient presents with severe abdominal pain, nausea and vomiting. Patient has elevated LFTs and bilirubin on presentation. The patient's abdominal ultrasound was negative for gallstones or cholecystitis. Patient is afebrile and has no leukocytosis. Patient has been having off-and-on symptoms of abdominal pain for the past 10 months. Symptoms became significantly worse and persistent the last 3-4 days. Gastroenterology at [facility] was contacted and recommended MRCP for further evaluation. MRCP shows contracted gallbladder with gallbladder wall thickening and some filling defect near the fundus of the gallbladder. This could represent some tumefactive sludge or noncalcified stones. There is trace pericholecystic fluid. The differential diagnosis for gallbladder wall thickening includes cholecystitis, hypoproteinemia or underlying liver disease. These findings were discussed with gastroenterology at [facility] and they recommended a cholecystectomy and treatment for cholecystitis. Surgery was consulted and Dr. Dyer asked for patient to be made n.p.o. after midnight and will operate in the morning with laparoscopic cholecystectomy. This afternoon patient underwent lap meeta with intraop cholangiogram, although lap meeta was successful Dr Dyer states she was unable to pass catheter through the biliary duct to do the cholangiogram, she would like to monitor patient for another night to ensure Bili continues to improve. If it does patient can be discharged tomorrow. Plan: Restart Diet Nausea and pain control IVFs Stop abx as patients gallbladder is now out Qualifiers: Abdominal location: right upper quadrant Qualified Code(s): R10.11 - Right upper quadrant pain (2) Elevated liver enzymes Conclusion/Plan: Patient presented with elevated liver enzymes with ALT greater than AST and elevated bilirubin. Patient has abdominal pain, nausea and vomiting. Ultrasound of the abdomen did not show any gallstones or cholecystitis. Patient 's liver enzymes have only mildly improved since yesterday. Patient's abdominal pain has worsened. Improving likely secondary to cholecystitis and possible transient CBD obstruction. MRCP does not show any CBD stones or CBD dilation. Cholecystectomy successfully done today but unable to pass catheter through the biliary duct for cholangiogram therefore patient needs to be monitored one more night to ensure bili is improving Plan: Continue to monitor LFTs and bili Improving Surgery following (3) Epilepsy Conclusion/Plan: Patient has history of epilepsy and is on Keppra at home. It is very unlikely that Keppra is causing her elevated LFTs and bilirubin. Continue home dose of Keppra. Stable (4) Prophylactic use of low molecular weight heparin for venous thromboembolism Conclusion/Plan: Placed on Lovenox for DVT prophylaxis while hospitalized. - Current Meds Current Meds: Current Medications Generic Name Dose Route Start Last Admin Trade Name Freq PRN Reason Stop Dose Admin Enoxaparin Sodium 40 mg 02/21/17 09:00 02/23/17 07:09 Lovenox SUBQ Not Given DAILY KAMERON Levetiracetam 1,500 mg 02/21/17 09:00 02/23/17 09:48 Keppra PO 1,500 mg BID KAMERON Administration Ondansetron HCl 4 mg 02/21/17 08:16 02/23/17 03:54 Zofran Inj IVP 4 mg Q6HR PRN Administration Nausea / Vomiting Pantoprazole Sodium 40 mg 02/22/17 07:00 02/23/17 02:39 Protonix PO Not Given QDAC KAMERON Polyethylene Glycol 17 gm 02/21/17 09:00 02/23/17 08:26 Miralax PO Not Given DAILY KAMERON Promethazine HCl 25 mg 02/21/17 08:16 02/23/17 04:12 Phenergan Inj IM 25 mg Q6HR PRN Administration Nausea / Vomiting Sodium Chloride 10 ml 02/21/17 08:16 02/22/17 21:22 Normal Saline Flush 0.9% IVP 10 ml PRN PRN Administration NEEDED PER PROVIDER ORDERS Sodium Chloride 10 ml 02/21/17 14:00 02/23/17 13:55 Normal Saline Flush 0.9% IVP Not Given Q8HR KAMERON - Lab Result Lab results reviewed: Yes Fish Bone Diagrams: 02/23/17 05:37 02/23/17 05:37 - Diagnostic Imaging Results Diagnostic Imaging Results: Final report reviewed - Additional Planning Condition/Complexity: Stable Consult/Specialty: Surgery Plan Discussed with:: Patient, Family Time Spent: 31-60 minutes Subjective - Subjective Patient Reports: Resting Comfortably, Abdominal Pain (Was stable this morning. She does have pain after surgery.), Nausea (Patient nauseated this morning but feels better after surgery. She still has some pain.) Nursing Reports: No Complaints Objective Vital Signs: Vital Signs - 24 hr 1102/23/17 02/23/17 00:23 09:49 15:37 Temperature 36.6 C 36.6 C Heart Rate [ 66 84 Brachial] Respiratory 17 16 Rate Blood Pressure 126/67 114/74 [Left Brachial artery] O2 Saturation 99 98 100 02/23/17 02/23/17 02/23/17 15:46 15:51 15:56 Temperature Heart Rate [ Brachial] Respiratory Rate Blood Pressure [Left Brachial artery] O2 Saturation 97 100 100 02/23/17 02/23/17 02/23/17 16:00 16:05 16:10 Temperature Heart Rate [ Brachial] Respiratory Rate Blood Pressure [Left Brachial artery] O2 Saturation 100 100 100 02/23/17 02/23/17 16:15 16:30 Temperature Heart Rate [ Brachial] Respiratory Rate Blood Pressure [Left Brachial artery] O2 Saturation 100 100 Oxygen O2 Source Room air I&O (Last 24 Hrs): Intake and Output Totals x24h 02/22/17 02/22/17 02/23/17 00:59 23:59 23:59 Intake Total 2250.0 Balance 2250.0 General: Alert, Oriented x3, Cooperative, No acute distress HEENT: Atraumatic, PERRLA, EOMI, Mucous membr. moist/pink Neck: Supple, No JVD, No thyromegaly, +2 carotid pulse wo bruit, No LAD Lymphatic: no adenopathy Neuro: Alert, Non Focal, CN 2-12 Grossly Intact, Oriented Times 3 Cardiovascular: Regular rate, Normal S1, Normal S2, No murmurs Respiratory: Chest non-tender, No respiratory distress, Breath sounds nml Abdomen: Normal bowel sounds, Soft, Other (Mild tenderness near surgical site) Extremities: No clubbing, No cyanosis, No edema, Normal pulses Skin: No rashes, No breakdown - Results Results: Laboratory Results WBC 7.2 x10^3/uL (4.8-10.8) 02/23/17 05:37 RBC 4.10 10^6/uL (4.20-5.40) L 02/23/17 05:37 Hgb 12.2 g/dL (12.0-16.0) 02/23/17 05:37 Hct 34.9 % (37.0-47.0) L 02/23/17 05:37 MCV 85.3 fL (81.0-99.0) 02/23/17 05:37 MCH 29.7 pg (27.0-31.0) 02/23/17 05:37 MCHC 34.8 g/dL (32.0-36.0) 02/23/17 05:37 RDW 12.2 % (12.0-15.0) 02/23/17 05:37 Plt Count 167 10^3/uL (130-450) 02/23/17 05:37 MPV 7.9 fL (7.9-10.8) 02/23/17 05:37 Neut # 5.0 10^3/uL (1.5-6.6) 02/23/17 05:37 Lymph # 1.3 10^3/uL (1.5-3.5) L 02/23/17 05:37 [place] # 0.6 10^3/uL (0.0-1.0) 02/23/17 05:37 Eos # 0.3 10^3/uL (0.0-0.7) 02/23/17 05:37 Baso # 0.0 10^3/uL (0.0-0.1) 02/23/17 05:37 Absolute Nucleated RBC 0.00 x10^3/uL 02/23/17 05:37 Nucleated RBC % 0.1 /100WBC 02/23/17 05:37 PT 11.7 secs (9.9-12.6) 02/23/17 05:37 INR 1.0 (0.8-1.2) 02/23/17 05:37 Sodium 136 mmol/L (135-145) 02/23/17 05:37 Potassium 3.4 mmol/L (3.5-5.0) L 02/23/17 05:37 Chloride 106 mmol/L (101-111) 02/23/17 05:37 Carbon Dioxide 24 mmol/L (21-32) 02/23/17 05:37 Anion Gap 6.0 (6-13) 02/23/17 05:37 BUN < 5 mg/dL (6-20) L 02/23/17 05:37 Creatinine 0.6 mg/dL (0.4-1.0) 02/23/17 05:37 Estimated GFR (MDRD) 125 (>89) 02/23/17 05:37 Glucose 92 mg/dL (70-100) 02/23/17 05:37 Calcium 8.7 mg/dL (8.5-10.3) 02/23/17 05:37 Ionized Calcium NO 02/23/17 05:37 Phosphorus 3.1 mg/dL (2.5-4.6) 02/23/17 05:37 Magnesium 1.5 mg/dL (1.7-2.8) L 02/23/17 05:37 Total Bilirubin 1.8 mg/dL (0.2-1.0) H 02/23/17 05:37 Direct Bilirubin 2.8 mg/dL (0.1-0.5) H 02/21/17 13:58 Indirect Bilirubin 1.5 mg/dL 02/21/17 13:58 AST 54 IU/L (10-42) H 02/23/17 05:37 ALT 291 IU/L (10-60) H 02/23/17 05:37 Alkaline Phosphatase 111 IU/L (42-121) 02/23/17 05:37 Total Protein 6.0 g/dL (6.7-8.2) L 02/23/17 05:37 Albumin 3.4 g/dL (3.2-5.5) 02/23/17 05:37 Globulin 2.6 g/dL (2.1-4.2) 02/23/17 05:37 Albumin/Globulin Ratio 1.3 (1.0-2.2) 02/23/17 05:37 Amylase 20 U/L (28-100) L 02/21/17 04:20 Lipase 19 U/L (22-51) L 02/21/17 04:20
[2017-02-23] MEDS ORDERED: SODIUM CHLORIDE 0.9% 50 ML IV ONE (17:28)
[2017-02-23] MEDS: PROMETHAZINE INJ 25 MG in SODIUM CHLORIDE 0.9% 50 ML IV PRN (17:32)
[2017-02-23] MEDS: ACETAMINOPHEN 1,000 MG/100 ML 100 ML IV PRN (17:33)
[2017-02-23] MEDS: oxyCODONE 5 MG TABLET PO PRN ×2 (18:56→20:15)
[2017-02-23] MEDS ORDERED: PROCHLORPERAZINE 10 MG/2 ML VIAL IVP PRN (21:43)
[2017-02-24] MEDS ORDERED: PROMETHAZINE 25 MG/1 ML VIAL ONE (00:01)
[2017-02-24] MEDS ORDERED: SODIUM CHLORIDE 0.9% 50 ML IV ONE (00:06)
[2017-02-24] MEDS: PROMETHAZINE INJ 25 MG in SODIUM CHLORIDE 0.9% 50 ML IV PRN (00:19)
[2017-02-24] MEDS: levETIRAcetam 250 MG TABLET PO SCH ×2 (00:32→08:39)
[2017-02-24] MEDS: ACETAMINOPHEN 1,000 MG/100 ML 100 ML IV PRN (03:26)
[2017-02-24] MEDS: PANTOPRAZOLE 40 MG TABLET PO SCH (06:02)
[2017-02-24 06:03] LABS: BILIRUBIN,DIRECT 0.5 mg/dL (0.1-0.5); BILIRUBIN,TOTAL 1.6 mg/dL (0.2-1.0); TOTAL PROTEIN 6.3 g/dL (6.7-8.2)
[2017-02-24] MEDS: SODIUM CHLORIDE FLUSH 0.9% 10 ML SYRINGE IVP SCH (06:03)
[2017-02-24 07:45] VITALS: BP 113/59
--- NOTE | 2017-02-24 07:59 | PROVIDER PROGRESS NOTE ---
Subjective - General Admit Date: 02/22/17 Procedure Date: 02/23/17 Post Op Days: 1 Procedure Performed: laparoscopic cholecystectomy - Review of Systems Wound/Incisions: positive: Healing well, No drainage - Other Other Information/Narrative: nausea and emesis last pm, but improved this am. afebrile, normal vital signs Objective - Patient Data Reviewed Vital Signs: Yes Vital Signs: Vital Signs x48h Temp Pulse Resp BP Pulse Ox 02/24/17 07:44 36.5 C 72 18 113/59 L 97 Intake & Output: Intake and Output Totals x24h 02/22/17 02/23/17 02/24/17 23:59 23:59 23:59 Intake Total 3401.0 701 Output Total 650 Balance 2751.0 701 - Lab Results Lab Results: 02/23/17 05:37 02/23/17 05:37 Other Lab Results: Lab Results x24hrs 02/24/17 Range/Units 05:30 Total Bilirubin 1.6 H (0.2-1.0) mg/dL Direct Bilirubin 0.5 (0.1-0.5) mg/dL AST 108 H (10-42) IU/L ALT 290 H (10-60) IU/L Alkaline Phosphatase 117 (42-121) IU/L Total Protein 6.3 L (6.7-8.2) g/dL Albumin 3.6 (3.2-5.5) g/dL Globulin 2.7 (2.1-4.2) g/dL - Current Medications Current Medications: Current Medications Generic Name Dose Route Start Last Admin Trade Name Freq PRN Reason Stop Dose Admin Enoxaparin Sodium 40 mg 02/21/17 09:00 02/23/17 07:09 Lovenox SUBQ Not Given DAILY KMAERON Sodium Chloride 1,000 mls @ 50 mls/hr 02/23/17 15:41 02/23/17 17:32 Normal Saline 0.9% IV 50 mls/hr .Q20H KAMERON Administration Acetaminophen 100 mls @ 400 mls/hr 02/23/17 17:07 02/24/17 03:57 Ofirmev IV Infused Q6HR PRN Infusion PAIN Promethazine HCl 25 mg/ Sodium 51 mls @ 100 mls/hr 02/23/17 17:09 02/24/17 01 :24 Chloride IV Infused Q6H PRN Infusion Nausea / Vomiting Levetiracetam 1,500 mg 02/21/17 09:00 02/24/17 00:32 Keppra PO 1,500 mg BID KAMERON Administration Ondansetron HCl 4 mg 02/21/17 08:16 02/23/17 19:26 Zofran Inj IVP 4 mg Q6HR PRN Administration Nausea / Vomiting Oxycodone HCl 5 mg 02/21/17 08:16 02/23/17 20:15 Roxicodone PO 5 mg Q4HR PRN Administration Pain 5 to 7 Pantoprazole Sodium 40 mg 02/22/17 07:00 02/24/17 06:02 Protonix PO 40 mg QDAC KAMERON Administration Polyethylene Glycol 17 gm 02/21/17 09:00 02/23/17 08:26 Miralax PO Not Given DAILY KAMERON Prochlorperazine Edisylate 10 mg 02/23/17 21:43 02/23/17 22:03 Compazine Inj IVP 10 mg Q4HR PRN Administration Nausea / Vomiting Sodium Chloride 10 ml 02/21/17 08:16 02/22/17 21:22 Normal Saline Flush 0.9% IVP 10 ml PRN PRN Administration NEEDED PER PROVIDER ORDERS Sodium Chloride 10 ml 02/21/17 14:00 02/24/17 06:03 Normal Saline Flush 0.9% IVP Not Given Q8HR KAMERON - Physical Exam Wound/Incisions: positive: Healing well General Appearance: positive: No acute distress Eyes Bilateral: positive: Normal inspection Respiratory: positive: No respiratory distress Cardiovascular: positive: Regular rate & rhythm Abdomen: positive: Other (non-distended, soft, incisions CDI) Extremities: positive: No pedal edema Neurologic/Psychiatric: positive: Oriented x3 Impression/Plan - Problem List Problem List: s/p lap meeta for acute cholecystitis and likely passage of CBD stone - total bili is continuing to trend down. - if patient is able to tolerate a regular diet she can be discharged home after breakfast. She will follow up with me in 4 weeks or sooner for concerning symptoms - handout provided for the patient and she was counseled as to what concerning symptoms are.
[2017-02-24] MEDS: ENOXAPARIN 40 MG/0.4 ML SYRINGE SUBQ SCH (09:21)
[2017-02-24] MEDS: POLYETHYLENE GLYCOL 3350 17 GM PACKET PO SCH (09:22)
--- NOTE | 2017-02-24 11:03 | Discharge Plan ---
Discharge Plan Disposition: 01 Home, Self Care Condition: Stable Diet: Regular Activity Restrictions: Activity as Tolerated Shower Restrictions: No Driving Restrictions: No No Smoking: If you smoke, Please STOP! Call for help.
--- NOTE | 2017-02-24 11:05 | OPERATIVE REPORT ---
DATE OF SURGERY: 02/23/2017 00:00:00 PREOPERATIVE DIAGNOSIS: Acute cholecystitis. POSTOPERATIVE DIAGNOSES: Acute cholecystitis. PROCEDURE PERFORMED: Laparoscopic cholecystectomy with attempted intraoperative cholangiogram. SURGEON: Mansi Dyer MD. INDICATION FOR PROCEDURE: This is a 22-year-old female who presented to the emergency department 2 days prior with markedly elevated LFTs. An ultrasound failed to demonstrate any signs of acute cholecystitis and therefore, an MRCP was performed. This demonstrated signs of acute cholecystitis without any dilatation of the CBD and without any evidence of choledocholithiasis. Her enzymes improved and a surgical consultation was obtained. She is now going forward with laparoscopic cholecystectomy with planned intraoperative cholangiogram. FINDINGS: After obtaining informed consent from the patient, she was brought into the operating room and positioned on the operating table in the supine position, taking note of pressure points. The patient was intubated by Anesthesia. She was then prepped and draped in the usual sterile fashion and a time-out was taken according to protocol. Ancef 2 grams were administered. An infraumbilical 1 cm incision was created and deepened down to the umbilical fascia. This was grasped and elevated, and the Veress needle was inserted and the abdominal cavity insufflated. The Optiview trocar was then utilized to enter the abdominal cavity in the epigastric region using a 5 mm port. The Veress needle was removed and exchanged for a 12 mm port. The camera was then exchanged for the 10 mm 30-degree scope. Two additional 5 mm ports were placed along the patient's right lateral abdominal wall. The gallbladder was grasped and retracted over the dome of the liver. There were some filmy adhesions from the underlying omentum to the liver, and the gallbladder did not appear to be markedly inflamed. The wall, however, was edematous. The base of the gallbladder was grasped and retracted medially exposing the lateral attachments , and these were divided off of the liver bed. I worked my way anteriorly and then medially, dividing the medial attachments from the liver bed. The cystic duct was noted to have some surrounding edema, and it was circumferentially dissected. An enlarged Calot's node was noted. This was overlying the cystic artery directly. It was carefully dissected off the artery. The cystic artery eventually was completely exposed. The base of the gallbladder was removed from the gallbladder fossa, exposing the critical view. The cystic artery was clipped and divided. The cystic duct was further dissected from the fatty tissue surrounding it. However, this was noted to be quite edematous and fibrinous creating difficulty. At this point, the cystic duct was transected near the fundus of the gallbladder in order to perform a cholangiogram. The 4 mm ureteral catheter was placed in the right lateral abdominal ports and several attempts were made to advance the catheter into the cystic duct. The catheter was placed directly in the cystic duct lumen but would advance only approximately 5 mm and then meet resistance. The Roa catheter was then utilized in a similar manor but similar problems occurred. The cystic duct was manipulated in various ways in order to attempt to facilitate passage of the catheter, but I was unable to do so and the cholangiogram could not be performed. The cystic duct lumen was noted to be approximately 4 mm. The cystic duct was then clipped with 2 clips placed proximally. The fundus of the gallbladder was also clipped. There was some spillage of bile during this process; however, no spillage of stones. The gallbladder was then transected from the gallbladder fossa using electrocautery , placed in a specimen bag and removed through the umbilical port. The gallbladder fossa was copiously irrigated and hemostasis was noted to be achieved. The clips were inspected and were noted to be intact without any signs of a bile leak. The umbilical port site was then closed using the Alex-Blake device in a [id number] fashion with a 0 Vicryl, and 30 mL of local anesthetic was infiltrated into the incisions. The incisions were then closed with 4-0 Monocryl. Dermabond was then applied. The patient was extubated and taken to recovery room in stable condition. ESTIMATED BLOOD LOSS: 10 mL. COMPLICATIONS: Inability to perform intraoperative cholangiogram secondary to failure of passage of the catheter. SPECIMEN: Gallbladder. JOB #: [id number] EXT JOB #:[id number] MTDRadha
[2017-02-24] MEDS ORDERED: LIDOCAINE-PF 2% 10 ML AMP SUBQ ONE (15:46)
[2017-02-24] MEDS ORDERED: PROPOFOL 200 MG/20 ML VIAL IVP ONE (15:46)
[2017-02-24] MEDS ORDERED: ROCURONIUM 50 MG/5 ML VIAL IVP ONE (15:46)
[2017-02-24] MEDS ORDERED: fentaNYL 100 MCG/2 ML VIAL IVP ONE (15:46)
[2017-02-24] MEDS ORDERED: ceFAZolin 1 GM VIAL IV ONE (15:46)
[2017-02-24] MEDS ORDERED: KETOROLAC 30 MG/ML VIAL IVP ONE (15:46)
[2017-02-24] MEDS ORDERED: ePHEDrine 50 MG/ML VIAL IVP ONE (15:46)
[2017-02-24] MEDS ORDERED: ONDANSETRON 4 MG/2 ML VIAL IVP ONE (15:46)
--- NOTE | 2017-03-09 20:24 | DISCHARGE SUMMARY ---
DATE OF ADMISSION: 02/22/2017 DATE OF DISCHARGE: 02/24/2017 HISTORY OF PRESENT ILLNESS: This is a 22-year-old white female with a hiistory of seizures, who presented with right-sided abdominal pain and was admitted for management of acute cholecystitis. It was associated with nausea, vomiting, dark urine, and overall weakness. She had management by surgery with a laparoscopic cholecystectomy. HOSPITAL COURSE AND DISCHARGE DIAGNOSES: 1. Acute cholecystitis. The patient underwent a successful laparoscopic cholecystectomy. She required bowel rest and pain management during her stay. She had an appointment for followup with Dr. Mansi Dyer, the surgeon, at the time of discharge. 2. Pain control. The patient was discharged with pain medications per the surgeon. 3. Seizure disorder. The patient was maintained on her oral doses when the p.o. meds and diet were restarted. CONDITION AT DISCHARGE: Fatigued, but stable-appearing white female. PHYSICAL EXAMINATION AT DISCHARGE: VITAL SIGNS: Blood pressure 113/60, heart rate 72 and sinus rhythm, afebrile, rom air saturation 97%. HEENT: Unremarkable. Mucosa of the mouth was moist. NECK: No JVD and supple. CHEST: Clear. CARDIOVASCULAR: Heart sounds were normal. ABDOMEN: Soft. There was mild tenderness in the right upper quadrant. No guarding or rebound. EXTREMITIES: Showed no clubbing, cyanosis, or edema. NEUROLOGIC: Neurologically intact. LABORATORY AND IMAGING: Reviewed and as above. DISCHARGE MEDICATIONS: 1. Keppra 1500 mg p.o. b.i.d. 2. MiraLax 17 grams p.o. daily. 3. Calcium carbonate with vitamin D3 one tablet p.o. daily. ALLERGIES: TO "MUSCLE RELAXANTS." FOLLOWUP: With Dr. Dyer in 1 week and with her PCP for general followup. TIME REQUIRED FOR COMPLETION OF THIS DISCHARGE: 30 minutes. JOB #: [id number] EXT JOB #:[id number] [facility]
== END 2017-02-24 11:21 | disposition home or self-care (01) | DRG 419 ==
LOC: ED 03:50 → OBS 08:16 → OBSVTOIN 02-22 08:46 → MS2 02-22 14:33
PROVIDERS: ADMIT Internal Medicine; ATTEND Internal Medicine
PROC: 0FT44ZZ Resection of Gallbladder, Percutaneous Endoscopic Approach (ICD-10-PCS; principal; 2017-02-23 12:15)
DX: K80.01 Calculus of gallbladder with acute cholecystitis with obstruction (principal); G40.909 Epilepsy, unspecified, not intractable, without status epilepticus; E87.6 Hypokalemia; E83.42 Hypomagnesemia; Z79.899 Other long term (current) drug therapy
CPT/HCPCS: 36415; 74181; 80048; 80053; 80074; 80076; 82150; 82247; 82248; 83690; 83735; 84100; 85025; 85610; 88304; 96361; 96372; 96374; 96375; 96376; 99283; 99285

== ENCOUNTER 2017-03-07 15:38 | Emergency (ER) | payer OTHER, MEDICAID ==
[2017-03-07 15:44] VITALS: BP 124/78
--- NOTE | 2017-03-07 15:56 | ED Physician Documentation ---
PD HPI WOUND RECHECK - Stated complaint Stated Complaint: AB WOUND CHECK - Chief complaint Chief Complaint: Abd Pain - Histroy obtained from History obtained from: Patient - History of Present Illness Pain level max: 3 Pain level now: 3 Associated symptoms: No: Fever, Drainage Recently seen: Surgery - Additional information Additional information: Patient is a 22-year-old female who presents to the emergency department status post a laparoscopic cholecystectomy on February 23, 2017, states concern that a incision is becoming infected. No drainage. But does have some increasing pain. Also feels that there is mild redness. Review of Systems Constitutional: denies: Fever, Chills GI: denies: Vomiting : denies: Now EGA Skin: denies: Rash Musculoskeletal: denies: Neck pain, Back pain Neurologic: denies: Headache PD PAST MEDICAL HISTORY - Past Medical History Cardiovascular: None Respiratory: None Neuro: Seizure disorder Endocrine/Autoimmune: None Musculoskeletal: Scoliosis - Past Surgical History Ortho: Other - Present Medications Home Medications: Ambulatory Orders Medication Instructions Recorded Confirmed Levetiracetam [Keppra] 1,500 mg PO BID 08/03/16 03/07/17 Calcium Carbonate/Vitamin D3 1 each PO DAILY 02/04/17 03/07/17 [Calcium 500-Vit D3 200 Tablet] Polyethylene Glycol 3350 [Miralax] 17 gm PO DAILY packet 02/24/17 03/07/17 - Allergies Allergies/Adverse Reactions: Allergies Allergy/AdvReac Type Severity Reaction Status Date / Time muscle relaxers AdvReac Rash Uncoded 02/21/17 04:00 - Social History Does the pt smoke?: No Smoking Status: Never smoker - POLST Patient has POLST: No POLST Status: Full Code PD ED PE NORMAL - Vitals Vital signs reviewed: Yes - General General: Alert and oriented X 3, No acute distress - HEENT HEENT: Moist mucous membranes - Cardiac Cardiac: RRR, Strong equal pulses - Respiratory Respiratory: No respiratory distress, Clear bilaterally - Abdomen Abdomen: Soft, Non tender, Non distended, Other (inicisions are CDI without signs of infection. ) - Derm Derm: Warm and dry - Neuro Neuro: Alert and oriented X 3 - Psych Psych: Normal mood, Normal affect Results - Vitals Vitals: Vital Signs - 24 hr 03/07/17 15:40 Temperature 36.5 C Heart Rate 83 Respiratory 16 Rate Blood Pressure 124/78 O2 Saturation 97 Oxygen O2 Source Room air PD MEDICAL DECISION MAKING - ED course Complexity details: reviewed old records, considered differential, d/w patient ED course: Patient is a 22-year-old female is approximately 2 weeks status post cholecystectomy. Incisions are clean dry and intact without signs of infection. Discussed the case with Dr. Smith, surgery on-call who recommends that she follow-up in the clinic this week for a wound check. She is very well- appearing, nontoxic. Afebrile. Patient counseled regarding signs and symptoms for which I believe and urgent re-evaluation would be necessary. Patient with good understanding of and agreement to plan and is comfortable going home at this time This document was made in part using voice recognition software. While efforts are made to proofread this document, sound alike and grammatical errors may occur. Departure - Departure Disposition: 01 Home, Self Care Clinical Impression: Visit for wound check Condition: Good Instructions: ED Wound Check Post Op No Infec Follow-Up: EFRAIN MELCHOR MD [Provider Admit Priv/Credential] - Within 1 week (call the clinic on thursday for a wound check appointment this week. I spoke with Dr. Smith today. ) Comments: call the clinic on thursday for a wound check appointment this week. I spoke with Dr. Smith today.
== END 2017-03-07 16:10 | disposition home or self-care (01) ==
LOC: ED 15:38
DX: G89.18 Other acute postprocedural pain (principal); G40.909 Epilepsy, unspecified, not intractable, without status epilepticus
CPT/HCPCS: 99283

== ENCOUNTER 2017-03-20 23:57 | Emergency (ER) | payer OTHER, MEDICAID ==
--- NOTE | 2017-03-21 00:49 | ED Physician Documentation ---
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 She also had [facility] ED visit in January for a similar problem as [place]'s presentation, although her symptoms and signs were significantly worse on that visit; she says at that time, she had waited three days before coming to ED, that the symptoms resolved with the prescribed antibiotic, but that [place]ia's symptoms were concerning to her because they feel more rapidly progressive compared to previous.) Review of Systems Constitutional: denies: Fever Eyes: denies: Decreased vision, Discharge Ears: denies: Ear pain Nose: denies: Rhinorrhea / runny nose, Congestion, Sinus pressure / pain Throat: denies: Sore throat PD PAST MEDICAL HISTORY - Past Medical History Cardiovascular: None Respiratory: None Neuro: Seizure disorder Endocrine/Autoimmune: None Musculoskeletal: Scoliosis - Past Surgical History Ortho: Other - Present Medications Home Medications: Ambulatory Orders Medication Instructions Recorded Confirmed Levetiracetam [Keppra] 1,500 mg PO BID 08/03/16 03/21/17 Calcium Carbonate/Vitamin D3 1 each PO DAILY 02/04/17 03/21/17 [Calcium 500-Vit D3 200 Tablet] Cephalexin [Keflex] 500 mg PO QID #40 capsule 03/21/17 - Allergies Allergies/Adverse Reactions: Allergies Allergy/AdvReac Type Severity Reaction Status Date / Time muscle relaxers AdvReac Rash Uncoded 02/21/17 04:00 - Social History Does the pt smoke?: No Smoking Status: Never smoker Does the pt drink ETOH?: No Does the pt have substance abuse?: No - Immunizations Immunizations are current?: Yes - POLST Patient has POLST: No POLST Status: Full Code PD ED PE NORMAL - Vitals Vital signs reviewed: Yes - General General: Alert and oriented X 3, No acute distress, Well developed/nourished - HEENT HEENT: PERRL, EOMI, Moist mucous membranes, Pharynx benign, Other (there is right infraorbital trace erythema and swelling, mild-moderate tenderness to palpation (over right maxillary sinus)) PD ED PE EXPANDED - HEENT HEENT: Other (scant right nare honey-colored crusted discharge (in nare)) Results - Vitals Vitals: Vital Signs - 24 hr 03/21/17 03/21/17 00:02 01:40 Temperature 36.3 C L 36.7 C Heart Rate 83 90 Respiratory 16 18 Rate Blood Pressure 133/78 H 130/90 H O2 Saturation 98 100 Oxygen O2 Source Room air PD MEDICAL DECISION MAKING - ED course Complexity details: reviewed old records, considered differential, d/w patient ED course: mild findings on exam, but will rx keflex due to the similarity to previous episode (which presented with obvious signs per documentation). Patient asks about injection of Rocephin (family member, who is a nurse, told patient to ask if this would be appropriate). I explained that this would be reasonable given the similarity to previous episode and the rapidity of progression, and she was comfortable with this plan. Departure - Departure Disposition: 01 Home, Self Care Clinical Impression: Facial cellulitis Condition: Good Instructions: ED Cellulitis Facial Prescriptions: Cephalexin [Keflex] 500 mg PO QID #40 capsule Discharge Date/Time: 03/21/17 01:40
[2017-03-21] MEDS ORDERED: cefTRIAXone 1 GM VIAL IM STA (01:03)
[2017-03-21] MEDS ORDERED: LIDOCAINE 1% 2 ML VIAL ONE ×2 (01:16→01:20)
[2017-03-21] MEDS ORDERED: cefTRIAXone 1 GM VIAL ONE ×2 (01:17→01:20)
[2017-03-21 01:40] VITALS: BP 130/90
== END 2017-03-21 01:40 | disposition home or self-care (01) ==
LOC: ED 23:57
DX: L03.211 Cellulitis of face (principal)
CPT/HCPCS: 96372; 99283

== ENCOUNTER 2018-09-27 09:57 | Outpatient (CLI) | payer OTHER ==
[2018-09-27 10:40] VITALS: BP 92/51
== END 2018-09-27 10:45 | disposition home or self-care (01) ==
LOC: WFO 09:57 → FBP 10:02 → WFO 10:45
PROVIDERS: ATTEND Obstetrics & Gynecology
DX: O99.353 Diseases of the nervous system complicating pregnancy, third trimester (principal); G40.909 Epilepsy, unspecified, not intractable, without status epilepticus; O09.93 Supervision of high risk pregnancy, unspecified, third trimester
CPT/HCPCS: 59025

== ENCOUNTER 2018-09-27 12:22 | Outpatient (CLI) | payer OTHER ==
--- NOTE | 2018-09-27 15:58 | Ultrasound Report ---
Reason: SEIZURE DISORDER,HIGH RISK SUPERVISION,T Procedure Date: 09/27/2018 Accession Number: [id number] / [id number] Procedure: US - OB Biophysical Profile CPT Code: FULL RESULT: EXAM: BIOPHYSICAL PROFILE EXAM DATE: 09/27/2018 01:09 PM. CLINICAL HISTORY: SEIZURE DISORDER,HIGH RISK SUPERVISION,T. COMPARISON: OB BIOPHYSICAL PROFILE 07/20/2016 12:25 PM. TECHNIQUE: Real-time sonographic evaluation of the fetus performed by the social media sr strategy manager. Multiple airport representative static images were saved for review. DATING: Established EGA 32 weeks 1 day with MATT 11/21/2018. GENERAL EVALUATION Live . Cardiac activity: 140 bpm. movement: Visualized. Presentation: Cephalic. Placenta: Posterior position. Amniotic fluid: Normal. ZACH 20.0 cm. MVP 6.2 cm. BIOPHYSICAL PROFILE Breathing = 2 Movement = 2 Tone = 2 Amniotic Fluid = 2 Total 11/25 IMPRESSION: 1. Live live intrauterine with gestational age 3 2 weeks 1 day based on established MATT. 2. Biophysical profile score 8 of 8. RADIA
== END 2018-09-27 12:23 | disposition home or self-care (01) ==
LOC: DI 12:22
PROVIDERS: ATTEND Obstetrics & Gynecology
DX: O99.353 Diseases of the nervous system complicating pregnancy, third trimester (principal); G40.909 Epilepsy, unspecified, not intractable, without status epilepticus; Z3A.32 32 weeks gestation of pregnancy
CPT/HCPCS: 59025; 76819

== ENCOUNTER 2018-10-04 10:02 | Outpatient (CLI) | payer OTHER ==
[2018-10-04 10:23] VITALS: BP 99/42
--- NOTE | 2018-10-09 12:10 | PROCEDURE REPORT ---
- HPI Diagnosis/Indication for NST: Other (Seizure disorder on anti-epileptics) Current EDU 11/21/18 Gestation 33 Weeks and 1 Days 3 Para 1 Vital Signs Temperature 98.2 F 10/04/18 10:22 Heart Rate 94 10/04/18 10:22 Respiratory Rate 94 H 10/04/18 10:22 Blood Pressure 99/42 L 10/04/18 10:22 O2 Saturation 98 10/04/18 10:22 Temperature 98.2 F 10/04/18 10:22 Heart Rate 94 10/04/18 10:22 Respiratory Rate 94 H 10/04/18 10:22 Blood Pressure 99/42 L 10/04/18 10:22 O2 Saturation 98 10/04/18 10:22 - NST Procedure NST Procedure Start Date 10/04/18 Start Time 10:16 Stop Time 10:37 Vibroacoustic Stimulation Used No Patient States Movement Yes: Has epilepsy and on Rx for seizures EFM 130 mod davidson 15x15 accels no decels TOCO: quiet Cat I tracing - Results and Plan Findings/Impression: Patient is a 23 yo at 33w1d here for NST for seizure disorder. She is followed by Dr. Talib Marie of [facility]. She is scheduled for twice weekly NST/weekly AF per [facility] recommendations. In the interest of convenience, she is having weekly NST at [facility] to avoid going off [place]. Cat I tracing Plan: Follow up per plan for testing as prescribed by Dr. Marie Cont with twice weekly NST
== END 2018-10-04 10:45 | disposition home or self-care (01) ==
LOC: WFO 10:02 → FBP 10:08 → WFO 10:45
PROVIDERS: ATTEND Obstetrics & Gynecology
DX: O99.353 Diseases of the nervous system complicating pregnancy, third trimester (principal); G40.909 Epilepsy, unspecified, not intractable, without status epilepticus; O09.93 Supervision of high risk pregnancy, unspecified, third trimester
CPT/HCPCS: 59025; 76819

== ENCOUNTER 2018-10-04 11:43 | Outpatient (CLI) | payer OTHER ==
--- NOTE | 2018-10-04 14:00 | Ultrasound Report ---
Reason: SEIZURE DISORDER, HIGH-RISK Procedure Date: 10/04/2018 Accession Number: [id number] / [id number] Procedure: US - OB Biophysical Profile CPT Code: FULL RESULT: EXAM: BIOPHYSICAL PROFILE EXAM DATE: 10/04/2018 12:23 PM. CLINICAL HISTORY: Seizure disorder, high-risk . COMPARISON: OB BIOPHYSICAL PROFILE 09/27/2018 12:28 PM. TECHNIQUE: Real-time sonographic evaluation of the fetus performed by the medical practice manager. Multiple development representative static images were saved for review. DATING: Established EGA 33 weeks 1 day with MATT 11/21/2018. GENERAL EVALUATION Live . Cardiac activity: 150 bpm. movement: Visualized. Presentation: Cephalic. Placenta: Posterior position. No evidence for previa or abruption. Amniotic fluid: Normal. ZACH 21.2 cm. MVP 6.2 cm. BIOPHYSICAL PROFILE Breathing = 2 Movement = 2 Tone = 2 Amniotic Fluid = 2 Total 8/8 IMPRESSION: 1. Live live intrauterine with gestational age 33 weeks 1 day based on MATT of 11/21/2018. 2. Biophysical profile score 8 of 8. CHINO
== END 2018-10-04 11:44 | disposition home or self-care (01) ==
LOC: DI 11:43
PROVIDERS: ATTEND Obstetrics & Gynecology
DX: O99.353 Diseases of the nervous system complicating pregnancy, third trimester (principal); G40.909 Epilepsy, unspecified, not intractable, without status epilepticus; Z3A.33 33 weeks gestation of pregnancy; O09.893 Supervision of other high risk pregnancies, third trimester
CPT/HCPCS: 76819

== ENCOUNTER 2018-10-11 10:01 | Outpatient (CLI) | payer OTHER ==
[2018-10-11 10:30] VITALS: BP 98/57
--- NOTE | 2018-10-13 19:00 | PROCEDURE REPORT ---
- HPI Diagnosis/Indication for NST: Other (Seizure disorder) Current EDU 11/21/18 Gestation 34 Weeks and 1 Days 3 Para 1 Vital Signs Temperature 98.4 F 10/11/18 10:27 Heart Rate 87 10/11/18 10:27 Respiratory Rate 16 10/11/18 10:27 Blood Pressure 98/57 L 10/11/18 10:27 O2 Saturation 100 10/11/18 10:27 Temperature 98.4 F 10/11/18 10:27 Heart Rate 87 10/11/18 10:27 Respiratory Rate 16 10/11/18 10:27 Blood Pressure 98/57 L 10/11/18 10:27 O2 Saturation 100 10/11/18 10:27 - NST Procedure DOS: 10/11/18 NST Procedure Start Date 10/11/18 Start Time 10:10 Stop Time 10:35 Vibroacoustic Stimulation Used No Patient States Movement Yes EFM 125 mod davidson 15x15 accels no decels TOCO: quiet Category I tracing - Results and Plan Findings/Impression: Patient is a 23 yo at 34w1d here for NST for seizure disorder. She is followed by Dr. Talib Marie of [facility]. She is scheduled for tw ice weekly NST/weekly AF per [facility] recommendations. In the interest of convenience, she is having weekly NST at [facility] [place] to avoid going off [place]. Cat I tracing Plan: Continue testing as per Dr. Marie Twice weekly NST and weekly ZACH
== END 2018-10-11 10:40 | disposition home or self-care (01) ==
LOC: WFO 10:01 → FBP 10:03 → WFO 10:40
PROVIDERS: ATTEND Obstetrics & Gynecology
DX: O99.353 Diseases of the nervous system complicating pregnancy, third trimester (principal); G40.909 Epilepsy, unspecified, not intractable, without status epilepticus; Z3A.34 34 weeks gestation of pregnancy
CPT/HCPCS: 59025; 76819

== ENCOUNTER 2018-10-11 10:48 | Outpatient (CLI) | payer OTHER ==
--- NOTE | 2018-10-11 12:10 | Ultrasound Report ---
Reason: SEIZURE DISORDER,HIGH RISK SUPERVISION,T Procedure Date: 10/11/2018 Accession Number: [id number] / [id number] Procedure: US - OB Biophysical Profile CPT Code: FULL RESULT: EXAM: BIOPHYSICAL PROFILE EXAM DATE: 10/11/2018 11:25 AM. CLINICAL HISTORY: Seizure disorder, high risk supervision, t. COMPARISON: OB BIOPHYSICAL PROFILE 10/04/2018 11:46 AM. TECHNIQUE: Real-time sonographic evaluation of the fetus performed by the prosthetic dentist. Multiple dairy supplies sales representative static images were saved for review. DATING: Established EGA 34 weeks 1 day with MATT 11/21/2018. GENERAL EVALUATION Live . Cardiac activity: 162 bpm. movement: Visualized. Presentation: Cephalic. Placenta: Posterior position. No evidence for previa or abruption. Amniotic fluid: Normal. ZACH 13.8 cm. MVP 3.9 cm. BIOPHYSICAL PROFILE Breathing = 2 Movement = 2 Tone = 2 Amniotic Fluid = 2 Total 11/25 IMPRESSION: 1. Live live intrauterine with gestational age 34 weeks 1 day based on working due date. 2. Biophysical profile score 8 of 8. CHINO
== END 2018-10-11 10:49 | disposition home or self-care (01) ==
LOC: DI 10:48
PROVIDERS: ATTEND Obstetrics & Gynecology
DX: O09.93 Supervision of high risk pregnancy, unspecified, third trimester (principal); O99.353 Diseases of the nervous system complicating pregnancy, third trimester; G40.909 Epilepsy, unspecified, not intractable, without status epilepticus; Z3A.34 34 weeks gestation of pregnancy
CPT/HCPCS: 76819

== ENCOUNTER 2018-10-18 10:06 | Outpatient (CLI) | payer OTHER ==
[2018-10-18 10:29] VITALS: BP 104/62
--- NOTE | 2018-10-19 14:32 | PROCEDURE REPORT ---
- HPI Diagnosis/Indication for NST: Other (Epilepsy) Current EDU 11/21/18 Gestation 35 Weeks and 1 Days 3 Para 1 Vital Signs Temperature 36.7 C 10/18/18 10:25 Heart Rate 102 H 10/18/18 10:25 Respiratory Rate 16 10/18/18 10:25 Blood Pressure 104/62 10/18/18 10:25 O2 Saturation 100 10/18/18 10:25 Temperature 36.7 C 10/18/18 10:25 Heart Rate 102 H 10/18/18 10:25 Respiratory Rate 16 10/18/18 10:25 Blood Pressure 104/62 10/18/18 10:25 O2 Saturation 100 10/18/18 10:25 - NST Procedure NST Procedure Start Date 10/18/18 Start Time 10:19 Stop Time 10:44 Vibroacoustic Stimulation Used No Patient States Movement Yes - Results and Plan Findings/Impression: There is a reactive NST. Impression intrauterine at 35 weeks 1 day gestation Epilepsy Plan: The patient was discharged to home. She will continue with her weekly NSTs until delivery.
== END 2018-10-18 10:48 | disposition home or self-care (01) ==
LOC: WFO 10:06 → FBP 10:09 → WFO 10:48
PROVIDERS: ATTEND Obstetrics & Gynecology
DX: O99.353 Diseases of the nervous system complicating pregnancy, third trimester (principal); G40.909 Epilepsy, unspecified, not intractable, without status epilepticus; Z3A.35 35 weeks gestation of pregnancy
CPT/HCPCS: 59025; 76819

== ENCOUNTER 2018-10-18 11:37 | Outpatient (CLI) | payer OTHER ==
--- NOTE | 2018-10-18 16:13 | Ultrasound Report ---
Reason: SEIZURE DISORDER, HIGH-RISK Procedure Date: 10/18/2018 Accession Number: [id number] / [id number] Procedure: US - OB Biophysical Profile CPT Code: FULL RESULT: EXAM: BIOPHYSICAL PROFILE EXAM DATE: 10/18/2018 11:42 AM. CLINICAL HISTORY: Seizure disorder, high risk COMPARISON: 10/11/2018. TECHNIQUE: Real-time sonographic evaluation of the fetus performed by the progress man. Multiple liability claims representative static images were saved for review. DATING: Established EGA 35 weeks 1 day with MATT 11/21/2018. GENERAL EVALUATION Live . Cardiac activity: 153 bpm. movement: Present Presentation: Cephalic. Placenta: Posterior position. No evidence for previa or abruption. Amniotic fluid: Normal. ZACH 13.6 cm. MVP 4 cm. BIOPHYSICAL PROFILE Breathing = 2 Movement = 2 Tone = 2 Amniotic Fluid = 2 Total 11/25 IMPRESSION: 1. Live intrauterine with gestational age 35 weeks 1 day based on established MATT. 2. Biophysical profile score 8 of 8. RADIA
== END 2018-10-18 11:38 | disposition home or self-care (01) ==
LOC: DI 11:37
PROVIDERS: ATTEND Obstetrics & Gynecology
DX: O99.353 Diseases of the nervous system complicating pregnancy, third trimester (principal); G40.909 Epilepsy, unspecified, not intractable, without status epilepticus; Z3A.35 35 weeks gestation of pregnancy
CPT/HCPCS: 76819

== ENCOUNTER 2018-10-25 10:00 | Outpatient (CLI) | payer OTHER ==
--- NOTE | 2018-10-25 13:03 | PROCEDURE REPORT ---
- HPI Diagnosis/Indication for NST: Other (Intrauterine at 36 weeks 1 day gestation, Epilepsy, High risk ) Current EDU 11/21/18 Gestation 36 Weeks and 1 Days 3 Para 1 - NST Procedure NST Procedure Start Date 10/25/18 Start Time 10:07 Stop Time 10:30 Vibroacoustic Stimulation Used No Patient States Movement Yes - Results and Plan Findings/Impression: Findings: Reactive NST performed and read on 10/25/2018 Impression: Intrauterine at 36 weeks 1 day gestation Epilepsy High risk Plan: The patient was discharged home. She will follow-up with her regular provider for her high risk at [facility].She will return for her weekly NSTs in 1 week and continue this until delivery.
[2018-10-25 15:19] VITALS: BP 90/83
== END 2018-10-25 10:35 | disposition home or self-care (01) ==
LOC: WFO 10:00 → FBP 10:03 → WFO 10:35
PROVIDERS: ATTEND Obstetrics & Gynecology
DX: O99.353 Diseases of the nervous system complicating pregnancy, third trimester (principal); G40.909 Epilepsy, unspecified, not intractable, without status epilepticus; O09.93 Supervision of high risk pregnancy, unspecified, third trimester; Z3A.36 36 weeks gestation of pregnancy
CPT/HCPCS: 59025; 76819

== ENCOUNTER 2018-10-25 11:21 | Outpatient (CLI) | payer OTHER ==
--- NOTE | 2018-10-25 14:54 | Ultrasound Report ---
Reason: SEIZURE DISORDER, HIGH RISK Procedure Date: 10/25/2018 Accession Number: [id number] / [id number] Procedure: US - OB Biophysical Profile CPT Code: FULL RESULT: EXAM: BIOPHYSICAL PROFILE EXAM DATE: 10/25/2018 12:20 PM. CLINICAL HISTORY: Seizure disorder, high risk . COMPARISON: OB BIOPHYSICAL PROFILE 10/18/2018 11:42 AM. TECHNIQUE: Real-time sonographic evaluation of the fetus performed by the eap specialist. Multiple residential sales representative static images were saved for review. DATING: Established EGA 36 weeks 1 day with MATT 11/21/2018. GENERAL EVALUATION Live . Cardiac activity: 136 bpm. movement: Visualized. Presentation: Cephalic. Placenta: Posterior position. No evidence for previa or abruption. Amniotic fluid: Normal. ZACH 17.7 cm. MVP 6.1 cm. BIOPHYSICAL PROFILE Breathing = 2 Movement = 2 Tone = 2 Amniotic Fluid = 2 Total 11/25 IMPRESSION: 1. Live live intrauterine with gestational age 36 weeks 1 day based on working due date. 2. Biophysical profile score 8 of 8. CHINO
== END 2018-10-25 11:22 | disposition home or self-care (01) ==
LOC: DI 11:21
PROVIDERS: ATTEND Obstetrics & Gynecology
DX: O09.93 Supervision of high risk pregnancy, unspecified, third trimester (principal); O99.353 Diseases of the nervous system complicating pregnancy, third trimester; G40.909 Epilepsy, unspecified, not intractable, without status epilepticus; Z3A.36 36 weeks gestation of pregnancy
CPT/HCPCS: 76819

== ENCOUNTER 2018-11-01 10:03 | Outpatient (CLI) | payer OTHER ==
[2018-11-01 10:26] VITALS: BP 105/59
--- NOTE | 2018-11-05 16:49 | PROCEDURE REPORT ---
- HPI Diagnosis/Indication for NST: Other (Hx of seizure disorder) Current EDU 11/21/18 Gestation 37 Weeks and 1 Days 3 Para 1 Vital Signs Temperature 98.2 F 11/01/18 10:24 Heart Rate 97 11/01/18 10:24 Respiratory Rate 18 11/01/18 10:24 Blood Pressure 105/59 L 11/01/18 10:24 O2 Saturation 97 11/01/18 10:24 Temperature 98.2 F 11/01/18 10:24 Heart Rate 97 11/01/18 10:24 Respiratory Rate 18 11/01/18 10:24 Blood Pressure 105/59 L 11/01/18 10:24 O2 Saturation 97 11/01/18 10:24 - NST Procedure NST Procedure Start Date 11/01/18 Start Time 10:21 Stop Time 10:55 Vibroacoustic Stimulation Used No Patient States Movement Yes - Results and Plan Findings/Impression: at 37w1d here for NST for seizure disorder EFM 125 mod davidson 15x5 acc no dec TOCO: quiet Cat I tracing Cont AP testing as per primary providers recommendation
== END 2018-11-01 11:05 | disposition home or self-care (01) ==
LOC: WFO 10:03 → FBP 10:07 → WFO 11:05
PROVIDERS: ATTEND Obstetrics & Gynecology
DX: O09.93 Supervision of high risk pregnancy, unspecified, third trimester (principal); O99.353 Diseases of the nervous system complicating pregnancy, third trimester; G40.909 Epilepsy, unspecified, not intractable, without status epilepticus; Z3A.37 37 weeks gestation of pregnancy
CPT/HCPCS: 59025; 76819

== ENCOUNTER 2018-11-01 11:14 | Outpatient (CLI) | payer OTHER ==
--- NOTE | 2018-11-02 11:48 | Ultrasound Report ---
Reason: SEIZURE DISORDER, HIGH RISK Procedure Date: 11/01/2018 Accession Number: [id number] / [id number] Procedure: US - OB Biophysical Profile CPT Code: FULL RESULT: EXAM: BIOPHYSICAL PROFILE EXAM DATE: 11/01/2018 11:19 AM. CLINICAL HISTORY: Seizure disorder, high risk . COMPARISON: OB BIOPHYSICAL PROFILE 10/25/2018 11:36 AM. TECHNIQUE: Real-time sonographic evaluation of the fetus performed by the sales center associate. Multiple route service representative static images were saved for review. DATING: Established EGA 37 weeks 1 day with MATT 11/21/2018. GENERAL EVALUATION Live . Cardiac activity: 161 bpm. movement: Visualized. Presentation: Cephalic. Placenta: Posterior position. No evidence for previa or abruption. Amniotic fluid: Normal. ZACH 16.2 cm. MVP 5.4 cm. BIOPHYSICAL PROFILE Breathing = 2 Movement = 2 Tone = 2 Amniotic Fluid = 2 Total 11/25 IMPRESSION: 1. Live live intrauterine with gestational age 37 weeks 1 day based on established MATT. 2. Biophysical profile score 8 of 8. CHINO
== END 2018-11-01 11:15 | disposition home or self-care (01) ==
LOC: DI 11:14
PROVIDERS: ATTEND Obstetrics & Gynecology
DX: O09.93 Supervision of high risk pregnancy, unspecified, third trimester (principal); O99.353 Diseases of the nervous system complicating pregnancy, third trimester; G40.909 Epilepsy, unspecified, not intractable, without status epilepticus; Z3A.37 37 weeks gestation of pregnancy
CPT/HCPCS: 76819

== ENCOUNTER 2018-11-08 09:59 | Outpatient (CLI) | payer OTHER ==
[2018-11-08 10:20] VITALS: BP 93/57
--- NOTE | 2018-11-08 17:12 | PROCEDURE REPORT ---
- HPI Current EDU 11/21/18 Gestation 38 Weeks and 1 Days 3 Para 1 Vital Signs Temperature 98.2 F 11/08/18 10:18 Heart Rate 78 11/08/18 10:18 Respiratory Rate 16 11/08/18 10:18 Blood Pressure 93/57 L 11/08/18 10:18 Temperature 98.2 F 11/08/18 10:18 Heart Rate 78 11/08/18 10:18 Respiratory Rate 16 11/08/18 10:18 Blood Pressure 93/57 L 11/08/18 10:18 O2 Saturation - NST Procedure NST Procedure Start Date 11/08/18 Start Time 10:10 Stop Time 10:55 Vibroacoustic Stimulation Used No Patient States Movement Yes - Results and Plan Findings/Impression: 23 yo at 38w1d here for NST for known seizure disorder. managed by Dr. Marie at [facility] -EFM 140 mod davidson 15x15 accels no decel TOCO: intermittent Category I tracng Plan: Cont twice weekly NST as primary OB provider
== END 2018-11-08 10:35 | disposition home or self-care (01) ==
LOC: WFO 09:59 → FBP 10:14 → WFO 10:35
PROVIDERS: ATTEND Obstetrics & Gynecology
DX: O99.353 Diseases of the nervous system complicating pregnancy, third trimester (principal); G40.909 Epilepsy, unspecified, not intractable, without status epilepticus; O09.93 Supervision of high risk pregnancy, unspecified, third trimester; Z3A.38 38 weeks gestation of pregnancy
CPT/HCPCS: 59025; 76819

== ENCOUNTER 2018-11-15 09:04 | Outpatient (CLI) | payer OTHER ==
--- NOTE | 2018-11-16 11:04 | Ultrasound Report ---
Reason: SEIZURE DISORDER, HIGH-RISK Procedure Date: 11/15/2018 Accession Number: [id number] / [id number] Procedure: US - OB Biophysical Profile CPT Code: FULL RESULT: EXAM: BIOPHYSICAL PROFILE EXAM DATE: 11/15/2018 09:30 AM. CLINICAL HISTORY: SEIZURE DISORDER, HIGH-RISK . COMPARISON: OB BIOPHYSICAL PROFILE 11/08/2018 11:37 AM. TECHNIQUE: Real-time transabdominal sonographic evaluation of the fetus performed by the medical sales consultant. Multiple clearance representative static images were saved for review. DATING: Established EGA 39weeks/1day with MATT 11/21/2018. GENERAL EVALUATION Live . Cardiac activity: 134 bpm. movement: Visualized. Presentation: Vertex. Placenta: Posterior position. No evidence for previa or abruption. Amniotic fluid: Normal. ZACH 13 cm. MVP 6 cm. BIOPHYSICAL PROFILE Breathing = 2 Movement = 2 Tone = 2 Amniotic Fluid = 2 Total 11/25 IMPRESSION: 1. Live live intrauterine with gestational age 39weeks/1day based on established MATT. 2. Biophysical profile score 8 of 8. RADIA
== END 2018-11-15 09:05 | disposition home or self-care (01) ==
LOC: DI 09:04
PROVIDERS: ATTEND Obstetrics & Gynecology
DX: O99.353 Diseases of the nervous system complicating pregnancy, third trimester (principal); G40.909 Epilepsy, unspecified, not intractable, without status epilepticus; O09.93 Supervision of high risk pregnancy, unspecified, third trimester; Z3A.39 39 weeks gestation of pregnancy
CPT/HCPCS: 76819

== ENCOUNTER 2018-11-15 09:58 | Outpatient (CLI) | payer OTHER ==
[2018-11-15 10:38] VITALS: BP 105/58
--- NOTE | 2018-11-16 10:16 | PROCEDURE REPORT ---
- HPI Diagnosis/Indication for NST: Other (Seizure disorder) Current EDU 11/21/18 Gestation 39 Weeks and 1 Days 3 Para 1 Vital Signs Heart Rate 71 11/15/18 10:06 Blood Pressure 122/60 11/15/18 10:06 Temperature 98.2 F 11/15/18 10:33 Heart Rate 83 11/15/18 10:33 Respiratory Rate 16 11/15/18 10:33 Blood Pressure 105/58 L 11/15/18 10:33 O2 Saturation 99 11/15/18 10:10 - NST Procedure NST Procedure Start Date 11/15/18 Start Time 10:16 Stop Time 10:55 Vibroacoustic Stimulation Used No Patient States Movement Yes EFM 135 mod davidson 15x15 accels no decels TOCO: quiet Cat I tracing - Results and Plan Findings/Impression: 23 yo at 39w1d with known seizure disorder here for NST Cat I tracing Will undergo IOL with primary OB
== END 2018-11-15 10:40 | disposition home or self-care (01) ==
LOC: WFO 09:58 → FBP 10:01 → WFO 10:40
PROVIDERS: ATTEND Obstetrics & Gynecology
DX: O09.93 Supervision of high risk pregnancy, unspecified, third trimester (principal); O99.353 Diseases of the nervous system complicating pregnancy, third trimester; G40.909 Epilepsy, unspecified, not intractable, without status epilepticus; Z3A.39 39 weeks gestation of pregnancy
CPT/HCPCS: 59025; 76819